=== PATIENT | male | born 1970 | race Hispanic/Latino ===

== ENCOUNTER 2018-02-14 13:33 | Inpatient (IN) | payer SELFPAY ==
[2018-02-14 13:34] VITALS: BMI 28.5
--- NOTE | 2018-02-14 14:45 | ED PDOC ---
HPI: General Adult Time Seen by Provider: 02/14/18 14:43 Chief Complaint (Nursing): Seizure Chief Complaint (Provider): HEAD INJURY/FALL History Per: Patient (47 Y/O MAN STAYS AT HOMELESS SKILLED NURSING HERE WITH COMPLAINT OF FALL TODAY AFTER LOSS OF BALANCE. STATES HE TURNED QUICKLY AND FELT DIZZY. STATES HE HAS HAD SIMILAR EPISODES LAST YEAR AND DESCRIBED THEM 'SEIZURES.' STATES HE WAS AWARE OF HIS SURROUNDINGS WITH NO LOC. NOTES HE WAS NOT ABLE TO GET UP OFF FLOOR. NOTES HIP PAIN WELL/HEAD LACERATION.) Past Medical History Reviewed: Historical Data, Nursing Documentation, Vital Signs Vital Signs: Last Vital Signs Temp 99.1 F 02/14/18 13:36 Pulse 124 H 02/14/18 13:36 Resp 16 02/14/18 13:36 BP 153/101 H 02/14/18 13:36 Pulse Ox 99 02/14/18 13:36 - Medical History PMH: Fractures (left ankle fx twice, r great toe fx, r 5th toe fx), HTN, Seizures Denies: Depression - Family History Family History: States: No Known Family Hx - Home Medications Home Medications: Ambulatory Orders Medication Instructions Recorded No Known Home Med 02/14/18 - Allergies Allergies/Adverse Reactions: Allergies Allergy/AdvReac Type Severity Reaction Status Date / Time No Known Allergies Allergy Verified 02/14/18 13:36 Review of Systems ROS Statement: Except As Marked, All Systems Reviewed And Found Negative Physical Exam - Reviewed Nursing Documentation Reviewed: Yes Vital Signs Reviewed: Yes - Physical Exam Appears: Positive for: Well, Non-toxic, No Acute Distress Head Exam: Positive for: NORMAL INSPECTION, NORMOCEPHALIC. Negative for: ATRAUMATIC (1.0 CM LACERATION LATERAL ON RIGHT SIDE OF FACE BY TEMPORAL REGION) Skin: Positive for: Normal Color, Warm, DRY Eye Exam: Positive for: EOMI, Normal appearance, PERRL ENT: Positive for: Normal ENT Inspection Neck: Positive for: Normal, Painless ROM Cardiovascular/Chest: Positive for: Regular Rate, Rhythm Respiratory: Positive for: CNT, Normal Breath Sounds Gastrointestinal/Abdominal: Positive for: Normal Exam, Soft Back: Positive for: Normal Inspection Extremity: Positive for: Normal ROM Neurologic/Psych: Positive for: Alert, Oriented - Laboratory Results Result Diagrams: 02/14/18 15:30 02/14/18 15:30 - ECG O2 Sat by Pulse Oximetry: 99 - Progress ED Course And Treament: CT FACIAL/ORBIT FINDINGS: NASAL BONES: Unremarkable. ORBITS: Unremarkable. PARANASAL SINUSES/ MASTOIDS: There is severe extensive sinusitis MAXILLA: Unremarkable. MANDIBLE/ TEMPOROMANDIBULAR JOINTS: Unremarkable. SKULL BASE: Unremarkable. TEMPORAL BONES: Middle ears and mastoid grossly unremarkable. OTHER FINDINGS: None. IMPRESSION: No evidence of acute fracture REGLAN 10 MG IV ANTIVERT 25MG X 1 DOSE ATIVAN 0.5 MG IV X 1 DOSE FOR TACHYCARDIA BISOPRYL 5 MG X 1 DOSE UPON RE-EVALUATION, TEMP NOTED 100.6 PATIENT NOTED DROWSY, UNCLEAR SECONDARY TO MEDICATIONS OR UNDERLYING ILLNESS NS 2 LITERS ORDERED VENOUS BLOOD GAS/BC X 2/UA/CXR Disposition - Clinical Impression Clinical Impression: Pneumonia, Rhabdomyolysis, Fall, Cocaine abuse - Patient ED Disposition Is Patient to be Admitted: Yes - Disposition Referrals: FAMILY PROVIDER,NO [Primary Care Provider] - Disposition Time: 20:29 Condition: GUARDED - Pt Status Changed To: Hospital Disposition Of: Inpatient - Admit Certification Admit to Inpatient:: After my assessment, the patient will require hospit alization for at least two midnights. This is because of the severity of symptoms shown, intensity of services needed, and/or the medical risk in this patient being treated as an outpatient. Procedure: Wound Repair - Time Performed Time Performed: 20:03 - Time Out Time Out: Site verified - Consent Obtained Consent obtained: Verbal - Performed by Performed by: Mid-level Provider - Indications Indication(s):: Laceration - Location Location:: Face Shape:: Linear Dimensions Length cm: 1.0CM Depth:: Epidermis - Anesthetic Technique Local/Regional Anesthetic:: Lidocaine 1% w/epi - Debris Debris:: None - Irrigated Irrigated with ml of normal saline: 100ML - Complexity Complexity:: Simple (one layer) - Wound repair method Sutures:: # (2), Size (6-0 ), Type (PROLENE), Technique (INTERRUPTED) - Patient tolerated procedure Patient Tolerated Procedure:: Well
[2018-02-14 15:15] LABS: BARBITURATES, UR NEGATIVE (NEGATIVE); BENZODIAZEPINES, UR NEGATIVE (NEGATIVE); OPIATES, UR NEGATIVE (NEGATIVE); PHENCYCLIDINE, UR NEGATIVE (NEGATIVE)
--- NOTE | 2018-02-14 15:34 | CT ---
Date of service: 02/14/2018 PROCEDURE: CT HEAD WITHOUT CONTRAST. HISTORY: HEAD INJURY COMPARISON: None available. TECHNIQUE: Axial computed tomography images were obtained through the head/brain without intravenous contrast. Radiation dose: Total exam DLP = 2442 mGy-cm. This CT exam was performed using one or more of the following dose reduction techniques: Automated exposure control, adjustment of the mA and/or kV according to patient size, and/or use of iterative reconstruction technique. FINDINGS: HEMORRHAGE: No intracranial hemorrhage. BRAIN: No mass effect or edema. Mild atrophy and mild chronic microvascular changes VENTRICLES: Unremarkable. No hydrocephalus. CALVARIUM: Unremarkable. PARANASAL SINUSES: There is sinusitis with opacification of the ethmoid sinuses and mucosal thickening in the maxillary and sphenoid sinus MASTOID AIR CELLS: Unremarkable as visualized. No inflammatory changes. OTHER FINDINGS: None. IMPRESSION: No acute intracranial findings
--- NOTE | 2018-02-14 15:39 | CT ---
Date of service: 02/14/2018 PROCEDURE: CT MAXILLOFACIAL BONES WITHOUT CONTRAST HISTORY: FACIAL INJURY COMPARISON: None available. TECHNIQUE: Contiguous axial CT images of the maxillofacial bones were obtained. Coronal and sagittal reformats were generated. Radiation dose: Total exam DLP = 2442.68 mGy-cm. This CT exam was performed using one or more of the following dose reduction techniques: Automated exposure control, adjustment of the mA and/or kV according to patient size, and/or use of iterative reconstruction technique. FINDINGS: NASAL BONES: Unremarkable. ORBITS: Unremarkable. PARANASAL SINUSES/ MASTOIDS: There is severe extensive sinusitis MAXILLA: Unremarkable. MANDIBLE/ TEMPOROMANDIBULAR JOINTS: Unremarkable. SKULL BASE: Unremarkable. TEMPORAL BONES: Middle ears and mastoid grossly unremarkable. OTHER FINDINGS: None. IMPRESSION: No evidence of acute fracture
[2018-02-14 15:44] LABS: BASO % 0.5 % (0.0-2.0); HEMOGLOBIN 10.1 g/dL (12.0-18.0); LYMPH % 21.4 % (20.0-40.0); MEAN CELL VOLUME 83.2 fl (80.0-94.0); MEAN CORPUSCULAR HEMOGLOBIN 27.1 pg (27.0-31.0); MEAN CORPUSCULAR HGB CONC 32.6 g/dL (33.0-37.0); MEAN PLATELET VOLUME 7.8 fl (7.2-11.7); MONO # 0.6 K/uL (0.0-0.8); MONO % 13.8 % (0.0-10.0); NEUT % 64.3 % (50.0-75.0); NRBC % 0.1 % (0.0-0.0); RBC 3.74 Mil/uL (4.40-5.90); RED CELL DISTRIBUTION WIDTH 15.7 % (11.5-14.5); WHITE BLOOD COUNT 4.6 K/uL (4.8-10.8)
[2018-02-14 15:51] LABS: ALB/GLOB RATIO 0.7 (1.0-2.1); ALBUMIN 3.6 g/dL (3.5-5.0); ALT/SGPT 37 U/L (21-72); AST/SGOT 104 U/L (17-59); BLOOD UREA NITROGEN 23 mg/dl (9-20); CALCIUM 8.7 mg/dL (8.4-10.2); GFR NON-AFRICAN AMERICAN > 60
--- NOTE | 2018-02-14 17:21 | RAD ---
Date of service: 02/14/2018 PROCEDURE: Right Wrist Radiographs. HISTORY: WRIST INJURY COMPARISON: None. FINDINGS: BONES: Normal. No fracture. JOINTS: Normal. No dislocation. SOFT TISSUES: Normal. OTHER FINDINGS: None. IMPRESSION: No acute findings related to/accounting for the clinical presentation.
--- NOTE | 2018-02-14 17:21 | RAD ---
Date of service: 02/14/2018 PROCEDURE: Pelvis and right hip HISTORY: HIP INJURY COMPARISON: None TECHNIQUE: Standard protocol for this study/examination. FINDINGS: There are no osseous abnormalities to suggest fracture. The pelvic ring is intact. Preserved femoral-acetabular relationship. Negative study for protrusio, subluxation or dislocation. Degenerative changes: Mild and symmetrical. IMPRESSION: No acute findings related to/accounting for the clinical presentation.
[2018-02-14] MEDS ORDERED: Sodium Chloride 0.9% 2,000 ML IV STA (18:53)
[2018-02-14 19:12] LABS: VENOUS BLOOD GAS BASE EXCESS 1.5 mmol/L (0.0-2.0); VENOUS BLOOD GAS PCO2 34 mmHg (40-60); VENOUS BLOOD GAS PO2 41 mm/Hg (30-55); VENOUS BLOOD PH 7.47 (7.32-7.43)
[2018-02-14] MEDS ORDERED: levoFLOXacin 750 mg in D5W 150 ML BAG IVPB STA (20:28)
[2018-02-14] MEDS ORDERED: levoFLOXacin 750 mg in D5W 750 MG/150 ML BAG IVPB ONE (21:50)
--- NOTE | 2018-02-14 22:11 | CP.PCM.HP ---
<Patricia Martin - Last Filed: 02/15/18 00:22> History of Present Illness - History of Present Illness History of Present Illness: 47 yr old homeless M presents to ED with complaint of right face laceration and right hip pain after fall. Reported he turned too quickly and felt dizzy and fell, was not able to get off the floor, suffered cut to right face, denied LOC. Patient asleep, arousable, not answering questions (likely due to drug intoxication). Information obtained from [employer]. Reported similar episodes in the past due to seizure activity. PMD: none PMHx: uncontrolled HTN, seizure activity, multiple fractures (left ankle, right great toe, right 5th toe) SurgHx: torn meniscus left knee and skin graft FMHx: unknown SocHx: cocaine abuse, homeless (stays at senior living) Medications: no home meds Allergies: NKDA ED course: BP 153/100 mmHg, HR 124 bpm, Resp rate 16, SpO2 99% -repeat BP 175/110 mmHg -EKG: sinus tachycardia, no significant ST-T changes -CXR: right upper and lower lobe patchy infiltrates-official report pending -Head CT: no acute intracranial findings -Orbit CT: no evidence of acute fracture -Right Hip and Pelvis Xray: no acute findings to account for clinical presentation -Right Wrist xray: no acute findings -Shoulder xray: pending -CBC w/diff: WBC 4.6, H/H 10.1/31.1, MCV 83.2, plts 164 -CMP: AST 104, BUN 23/Cr 1.1, rest wnl -alk phos 85, magnesium 1.8 -proBNP 7,120 -troponin: 0.0780 -total creatine kinase: 4,328 -Utox: positive for cocaine -influenza A,B negative -ED treatment: right temporal laceration repair (1 interrrupted suture); tylenol 975mg PO once, Bisoprolol 5mg PO once, Levofloxacin 750mg IV once, Ativan 0.5mg IV once, Meclizine 25mg PO once, Regaln 10mg IV once, NS 2L IV bolus once Present on Admission - Present on Admission Any Indicators Present on Admission: No History of DVT/PE: No History of Uncontrolled Diabetes: No Urinary Catheter: No Decubitus Ulcer Present: No History Surgical Site Infection Following: None Review of Systems - Review of Systems Systems not reviewed;Unavailable: Intoxicated Past Patient History - Infectious Disease Hx of Infectious Diseases: None - Tetanus Immunizations Tetanus Immunization: Unknown - Past Social History Smoking Status: Never Smoked - CARDIAC Hx Hypertension: Yes - NEUROLOGICAL Hx Seizures: Yes - HEMATOLOGICAL/ONCOLOGICAL Hx Blood Transfusions: No Hx Blood Transfusion Reaction: No - INTEGUMENTARY Other/Comment: left inner upper arm 4cm x 3cm large brown area surrounded by reddened skin and swelling - MUSCULOSKELETAL/RHEUMATOLOGICAL Hx Fractures: Yes (left ankle fx twice, r great toe fx, r 5th toe fx) - PSYCHIATRIC Hx Depression: No - SURGICAL HISTORY Hx Angioplasty: Yes (1 stent) Hx Orthopedic Surgery: Yes Other/Comment: torn meniscus left knee and skin graft - ANESTHESIA Hx Anesthesia: Yes Hx Anesthesia Reactions: No Hx Malignant Hyperthermia: No Meds Allergies/Adverse Reactions: Allergies Allergy/AdvReac Type Severity Reaction Status Date / Time No Known Allergies Allergy Verified 02/14/18 13:36 Physical Exam - Constitutional Appears: No Acute Distress, Other (drowsy, arousable; poor hygiene-significant malodor) - Head Exam Head Exam: absent: ATRAUMATIC (right temporal laceration repaired- 1 interrupted suture), NORMAL INSPECTION (dry blood over face, nasal discharge, multiple abrasions) - ENT Exam ENT Exam: Mucous Membranes Moist - Neck Exam Neck exam: Positive for: Normal Inspection - Respiratory Exam Respiratory Exam: NORMAL BREATHING PATTERN. absent: Rales, Rhonchi, Wheezes - Cardiovascular Exam Cardiovascular Exam: Tachycardia, +S1, +S2 - GI/Abdominal Exam GI & Abdominal Exam: Normal Bowel Sounds, Soft. absent: Distended, Guarding, Rebound, Tenderness - Extremities Exam Extremities exam: Positive for: pedal edema (bilateral +1), pedal pulses present - Neurological Exam Additional comments: somnolent - Skin Skin Exam: Abrasion (diffuse/multiple abrasion all over upper and lower extremities bilaterally and face), Dry, Warm Results - Vital Signs Recent Vital Signs: Last Vital Signs Temp 100.6 F H 02/14/18 19:42 Pulse 115 H 02/14/18 19:40 Resp 20 02/14/18 19:40 BP 131/108 H 02/14/18 19:40 Pulse Ox 99 02/14/18 20:30 - Labs Result Diagrams: 02/14/18 15:30 02/14/18 15:30 Labs: Laboratory Results - last 24 hr 02/14/18 02/14/18 02/14/18 14:51 15:30 15:30 WBC 4.6 L RBC 3.74 L Hgb 10.1 L Hct 31.1 L MCV 83.2 MCH 27.1 MCHC 32.6 L RDW 15.7 H Plt Count 164 MPV 7.8 Neut % (Auto) 64.3 Lymph % (Auto) 21.4 Millard % (Auto) 13.8 H Eos % (Auto) 0.0 Baso % (Auto) 0.5 Neut # (Auto) 3.0 Lymph # (Auto) 1.0 Millard # (Auto) 0.6 Eos # (Auto) 0.0 Baso # (Auto) 0.0 pO2 VBG pH VBG pCO2 VBG HCO3 VBG Total CO2 VBG O2 Sat (Calc) VBG Base Excess VBG Potassium Glucose Lactate FiO2 Sodium 139 Potassium 4.2 Chloride 106 Carbon Dioxide 25 Anion Gap 12 BUN 23 H Creatinine 1.1 Est GFR ( Amer) > 60 Est GFR (Non-Af Amer) > 60 Random Glucose 104 Calcium 8.7 Magnesium 1.8 Total Bilirubin 0.5 AST 104 H ALT 37 Alkaline Phosphatase 85 Total Creatine Kinase Troponin I 0.0780 NT-Pro-B Natriuret Pep Total Protein 8.8 H Albumin 3.6 Globulin 5.1 H Albumin/Globulin Ratio 0.7 L Venous Blood Potassium Urine Opiates Screen Negative Urine Methadone Screen Negative Ur Barbiturates Screen Negative Ur Phencyclidine Scrn Negative Ur Amphetamines Screen Negative U Benzodiazepines Scrn Negative U Oth Cocaine Metabols Positive H U Cannabinoids Screen Negative Alcohol, Quantitative < 10 Influenza Typ A,B (EIA) 02/14/18 02/14/18 02/14/18 18:50 19:00 19:00 WBC RBC Hgb Hct MCV MCH MCHC RDW Plt Count MPV Neut % (Auto) Lymph % (Auto) Millard % (Auto) Eos % (Auto) Baso % (Auto) Neut # (Auto) Lymph # (Auto) Millard # (Auto) Eos # (Auto) Baso # (Auto) pO2 41 VBG pH 7.47 H VBG pCO2 34 L VBG HCO3 25.6 VBG Total CO2 25.7 VBG O2 Sat (Calc) 80.6 H VBG Base Excess 1.5 VBG Potassium 3.9 Glucose 101 Lactate 0.7 FiO2 21.0 Sodium 138.0 Potassium Chloride 107.0 Carbon Dioxide Anion Gap BUN Creatinine Est GFR ( Amer) Est GFR (Non-Af Amer) Random Glucose Calcium Magnesium Total Bilirubin AST ALT Alkaline Phosphatase Total Creatine Kinase 4328 H Troponin I NT-Pro-B Natriuret Pep Total Protein Albumin Globulin Albumin/Globulin Ratio Venous Blood Potassium 3.9 Urine Opiates Screen Urine Methadone Screen Ur Barbiturates Screen Ur Phencyclidine Scrn Ur Amphetamines Screen U Benzodiazepines Scrn U Oth Cocaine Metabols U Cannabinoids Screen Alcohol, Quantitative Influenza Typ A,B (EIA) Negative for flu a/b 02/14/18 21:45 WBC RBC Hgb Hct MCV MCH MCHC RDW Plt Count MPV Neut % (Auto) Lymph % (Auto) Millard % (Auto) Eos % (Auto) Baso % (Auto) Neut # (Auto) Lymph # (Auto) Millard # (Auto) Eos # (Auto) Baso # (Auto) pO2 VBG pH VBG pCO2 VBG HCO3 VBG Total CO2 VBG O2 Sat (Calc) VBG Base Excess VBG Potassium Glucose Lactate FiO2 Sodium Potassium Chloride Carbon Dioxide Anion Gap BUN Creatinine Est GFR ( Amer) Est GFR (Non-Af Amer) Random Glucose Calcium Magnesium Total Bilirubin AST ALT Alkaline Phosphatase Total Creatine Kinase Troponin I NT-Pro-B Natriuret Pep 7120 H Total Protein Albumin Globulin Albumin/Globulin Ratio Venous Blood Potassium Urine Opiates Screen Urine Methadone Screen Ur Barbiturates Screen Ur Phencyclidine Scrn Ur Amphetamines Screen U Benzodiazepines Scrn U Oth Cocaine Metabols U Cannabinoids Screen Alcohol, Quantitative Influenza Typ A,B (EIA) Assessment & Plan - Assessment and Plan (Free Text) Assessment: 47 yr old M admitted for pneumonia and rhabdomyolysis with PMHx uncontrolled hypertension, seizures and cocaine abuse. 1. Pneumonia -febrile, cough, CXR patchy right upper and lower lobe infiltrates: official report pending -admit to telemetry -Ceftriaxone 1gm IV QD, Azithromycin 500mg IV QD -Pulmonology consult appreciated: Dr. Navarro -f/u blood and urine culture 2. Rhabdomyolysis -acute, likely secondary to fall -total creatinine kinase: 4,328 -IV NS at 200mls/hr -f/u BMP (monitor kidney funtion) -f/u serial troponins -fall precautions in place 3. Hypertension -chronic, uncontrolled -Vasotec 1.25mg IV Q6 -monitor BP -switch to PO medication when tolerated -heart healthy diet 4. Seizures hx -chronic (self reported) -Ativan 2mg IV PRN for seizure activity -fall precautions 5. DVT prophylaxis -Lovenox 40mg SC QD -SCD's continuously - Date & Time Date: 02/14/18 Time: 22:10 <Ismael Garrett - Last Filed: 02/15/18 01:34> Results - Vital Signs Recent Vital Signs: Last Vital Signs Temp 99.3 F 02/14/18 22:31 Pulse 105 H 02/14/18 22:31 Resp 18 02/14/18 22:31 BP 102/76 02/14/18 22:31 Pulse Ox 91 L 02/14/18 22:31 - Labs Result Diagrams: 02/14/18 15:30 02/14/18 15:30 Labs: Laboratory Results - last 24 hr 02/14/18 02/14/18 02/14/18 14:51 15:30 15:30 WBC 4.6 L RBC 3.74 L Hgb 10.1 L Hct 31.1 L MCV 83.2 MCH 27.1 MCHC 32.6 L RDW 15.7 H Plt Count 164 MPV 7.8 Neut % (Auto) 64.3 Lymph % (Auto) 21.4 Millard % (Auto) 13.8 H Eos % (Auto) 0.0 Baso % (Auto) 0.5 Neut # (Auto) 3.0 Lymph # (Auto) 1.0 Millard # (Auto) 0.6 Eos # (Auto) 0.0 Baso # (Auto) 0.0 pO2 VBG pH VBG pCO2 VBG HCO3 VBG Total CO2 VBG O2 Sat (Calc) VBG Base Excess VBG Potassium Glucose Lactate FiO2 Sodium 139 Potassium 4.2 Chloride 106 Carbon Dioxide 25 Anion Gap 12 BUN 23 H Creatinine 1.1 Est GFR ( Amer) > 60 Est GFR (Non-Af Amer) > 60 Random Glucose 104 Calcium 8.7 Magnesium 1.8 Total Bilirubin 0.5 AST 104 H ALT 37 Alkaline Phosphatase 85 Total Creatine Kinase Troponin I 0.0780 NT-Pro-B Natriuret Pep Total Protein 8.8 H Albumin 3.6 Globulin 5.1 H Albumin/Globulin Ratio 0.7 L Venous Blood Potassium Urine Opiates Screen Negative Urine Methadone Screen Negative Ur Barbiturates Screen Negative Ur Phencyclidine Scrn Negative Ur Amphetamines Screen Negative U Benzodiazepines Scrn Negative U Oth Cocaine Metabols Positive H U Cannabinoids Screen Negative Alcohol, Quantitative < 10 Influenza Typ A,B (EIA) 02/14/18 02/14/18 02/14/18 18:50 19:00 19:00 WBC RBC Hgb Hct MCV MCH MCHC RDW Plt Count MPV Neut % (Auto) Lymph % (Auto) Millard % (Auto) Eos % (Auto) Baso % (Auto) Neut # (Auto) Lymph # (Auto) Millard # (Auto) Eos # (Auto) Baso # (Auto) pO2 41 VBG pH 7.47 H VBG pCO2 34 L VBG HCO3 25.6 VBG Total CO2 25.7 VBG O2 Sat (Calc) 80.6 H VBG Base Excess 1.5 VBG Potassium 3.9 Glucose 101 Lactate 0.7 FiO2 21.0 Sodium 138.0 Potassium Chloride 107.0 Carbon Dioxide Anion Gap BUN Creatinine Est GFR ( Amer) Est GFR (Non-Af Amer) Random Glucose Calcium Magnesium Total Bilirubin AST ALT Alkaline Phosphatase Total Creatine Kinase 4328 H Troponin I NT-Pro-B Natriuret Pep Total Protein Albumin Globulin Albumin/Globulin Ratio Venous Blood Potassium 3.9 Urine Opiates Screen Urine Methadone Screen Ur Barbiturates Screen Ur Phencyclidine Scrn Ur Amphetamines Screen U Benzodiazepines Scrn U Oth Cocaine Metabols U Cannabinoids Screen Alcohol, Quantitative Influenza Typ A,B (EIA) Negative for flu a/b 02/14/18 21:45 WBC RBC Hgb Hct MCV MCH MCHC RDW Plt Count MPV Neut % (Auto) Lymph % (Auto) Millard % (Auto) Eos % (Auto) Baso % (Auto) Neut # (Auto) Lymph # (Auto) Millard # (Auto) Eos # (Auto) Baso # (Auto) pO2 VBG pH VBG pCO2 VBG HCO3 VBG Total CO2 VBG O2 Sat (Calc) VBG Base Excess VBG Potassium Glucose Lactate FiO2 Sodium Potassium Chloride Carbon Dioxide Anion Gap BUN Creatinine Est GFR ( Amer) Est GFR (Non-Af Amer) Random Glucose Calcium Magnesium Total Bilirubin AST ALT Alkaline Phosphatase Total Creatine Kinase Troponin I NT-Pro-B Natriuret Pep 7120 H Total Protein Albumin Globulin Albumin/Globulin Ratio Venous Blood Potassium Urine Opiates Screen Urine Methadone Screen Ur Barbiturates Screen Ur Phencyclidine Scrn Ur Amphetamines Screen U Benzodiazepines Scrn U Oth Cocaine Metabols U Cannabinoids Screen Alcohol, Quantitative Influenza Typ A,B (EIA) Attending/Attestation - Attestation I have personally seen and examined this patient.: Yes I have fully participated in the care of the patient.: Yes I have reviewed all pertinent clinical information: Yes Notes (Text): I saw, examined and discussed this patient with Dr Martin. I agree with the assessment and plan outlined above. This is a 47 years old homeless male with hx of HTN, seizure and Drug abuse. His hx is unreliable. He stated that he fell hitting his right side face, no LOC but it was as the feeling as when he suffered with a seizure episode. In the ED he appears to be intoxicated. A&P #. Fall with multitrauma. - CT of head and orbits were -ve for fractures. - The patient had the right facial wound sutured - Continue to monitor patient #. Cocaine intoxication - Cardiac monitoring - Ativan PRN for Seizures and Agitation - Treat hyperthermia and HTN #. Rhabdomyolysis secondary to the Cocaine and crush injury due to the fall - IV Fluids - Follow CPK #. HTN - Vasotec IV - Follow blood pressures #. Pulmonary Infiltrate r/o pneumonia - Consult Pulmonology Dr Nvaarro - Azithromycin - Ceftriaxone #. Elevated Pro BNP etiology unclear - lasix while receiving IV Fluids for The Rhabdomyolysis #. Anemia - Iron panel - B12 - Folate 02/15/18 01:28
[2018-02-15] MEDS: Sodium Chloride 0.9% 1,000 ML IV SCH ×4 (02:05→12:16)
[2018-02-15] MEDS: EnalaprilAT 1.25 mg/ml Inj IV SCH ×5 (05:44→21:53)
[2018-02-15 08:23] LABS: IRON < 10 ug/dL (49-181)
[2018-02-15 08:35] LABS: TROPONIN I 0.336 ng/mL (0.00-0.120)
[2018-02-15 08:39] LABS: TOTAL IRON BINDING CAPACITY 210 ug/dL (250-450)
[2018-02-15 08:41] LABS: % IRON SATURATION 4.8 % (20-55)
[2018-02-15] MEDS: Azithromycin 500 MG in Sodium Chloride 0.9% 250 ML IVPB SCH (10:40)
--- NOTE | 2018-02-15 10:42 | CP.PCM.CON ---
History of Present Illness - History of Present Illness History of Present Illness: This 47-year-old man arrived in the emergency room after a fall during which she suffered blunt injury to face and arms. Urinalysis shows evidence of cocaine use. The patient arrived in the emerg ency room unable to give clear history and required insertion of a Garsia catheter. During my examination patient was more awake and was able to answer simple questions but promptly drifted back to sleep. The patient appeared aware of his surroundings. Denied any blunt injury to his chest or chest pain. He denied prior history of hypertension or diabetes. Physical examination shows a well built well-nourished young man. Appears drowsy. Breathes comfortably at 14-16 breaths per minute. Had a heart rate off 80 bpm regular. With a blood pressure of 130/74 mmHg. His jugular venous pressure was not elevated and there was no edema over his lower extremities. Her pedal pulses were well felt. There were no carotid bruits. Superficial lacerations were evident on his face and arms. Extremities were warm and nailbeds were pink. The apex was vaguely felt in the left fifth space. The first and second heart sounds were normal. There was no murmur or gallop. There were no rales. His abdomen was soft liver and spleen are not palpable. His electrocardiogram at admission showed sinus rhythm at 124 bpm with a normal EKG pattern. An electrocardiogram done this morning shows sinus rhythm with much flattening of T waves and a prolonged QT interval. The QTC was 576 ms. (serum magnesium was low and it was replaced intravenously) the rest of the labs were noted. The patient did display a significant elevation of total CK and troponin levels both represent rhabdomyolysis. There is no evidence of an acute myocardial infarction. Impression: Blunt trauma with a rhabdomyolysis. Cocaine abuse. I have discussed his case with Dr. Sosa at length. Past Patient History - Infectious Disease Hx of Infectious Diseases: None - Tetanus Immunizations Tetanus Immunization: Unknown - Past Social History Smoking Status: Never Smoked - CARDIAC Hx Cardiac Disorders: Yes Hx Hypertension: Yes - NEUROLOGICAL Hx Neurological Disorder: Yes Hx Seizures: Yes - HEMATOLOGICAL/ONCOLOGICAL Hx Blood Transfusions: No Hx Blood Transfusion Reaction: No - INTEGUMENTARY Hx Dermatological Problems: Yes Hx Cellulitis: Yes - MUSCULOSKELETAL/RHEUMATOLOGICAL Hx Falls: No Hx Fractures: Yes (left ankle fx twice, r great toe fx, r 5th toe fx) - PSYCHIATRIC Hx Depression: No - SURGICAL HISTORY Hx Surgeries: Yes Hx Cardiac Catheterization: Yes (with 1 stent placement) Hx Orthopedic Surgery: Yes Other/Comment: torn meniscus left knee and skin graft - ANESTHESIA Hx Anesthesia: Yes Hx Anesthesia Reactions: No Hx Malignant Hyperthermia: No Meds Allergies/Adverse Reactions: Allergies Allergy/AdvReac Type Severity Reaction Status Date / Time No Known Allergies Allergy Verified 02/14/18 13:36 - Medications Medications: Current Medications Acetaminophen (Tylenol 325mg Tab) 650 mg PO Q4 PRN PRN Reason: Fever >100.4 F Last Admin: 02/15/18 05:58 Dose: 650 mg Aspirin (Aspirin) 325 mg PO DAILY [facility] Clopidogrel Bisulfate (Plavix) 75 mg PO DAILY [facility] Enalaprilat (Vasotec Iv) 1.25 mg IV Q6 [facility] Last Admin: 02/15/18 05:44 Dose: Not Given Enoxaparin Sodium (Lovenox) 40 mg SC DAILY [facility]; Protocol Sodium Chloride (Sodium Chloride 0.9%) 1,000 mls @ 200 mls/hr IV .Q5H [facility] Stop: 02/15/18 14:14 Last Admin: 02/15/18 08:08 Dose: 200 mls/hr Ceftriaxone Sodium 1 gm/ (Sodium Chloride) 100 mls @ 100 mls/hr IVPB DAILY [facility]; Protocol Azithromycin 500 mg/ Sodium (Chloride) 250 mls @ 250 mls/hr IVPB DAILY [facility]; Protocol Lorazepam (Ativan) 2 mg IVP STAT PRN PRN Reason: Seizure activity Lorazepam (Ativan) 1 mg IVP Q6H PRN PRN Reason: Agitation Losartan Potassium (Cozaar) 25 mg PO DAILY [facility] Results - Vital Signs Recent Vital Signs: Last Vital Signs Temp 99.7 F H 02/15/18 08:19 Pulse 100 H 02/15/18 08:19 Resp 16 02/15/18 08:19 BP 115/75 02/15/18 08:19 Pulse Ox 97 02/15/18 08:19 - Labs Result Diagrams: 02/14/18 15:30 02/14/18 15:30 Labs: Laboratory Results - last 24 hr 02/14/18 02/14/18 02/14/18 14:51 15:30 15:30 WBC 4.6 L RBC 3.74 L Hgb 10.1 L Hct 31.1 L MCV 83.2 MCH 27.1 MCHC 32.6 L RDW 15.7 H Plt Count 164 MPV 7.8 Neut % (Auto) 64.3 Lymph % (Auto) 21.4 [place] % (Auto) 13.8 H Eos % (Auto) 0.0 Baso % (Auto) 0.5 Neut # (Auto) 3.0 Lymph # (Auto) 1.0 [place] # (Auto) 0.6 Eos # (Auto) 0.0 Baso # (Auto) 0.0 pO2 VBG pH VBG pCO2 VBG HCO3 VBG Total CO2 VBG O2 Sat (Calc) VBG Base Excess VBG Potassium Glucose Lactate FiO2 Sodium 139 Potassium 4.2 Chloride 106 Carbon Dioxide 25 Anion Gap 12 BUN 23 H Creatinine 1.1 Est GFR ( Amer) > 60 Est GFR (Non-Af Amer) > 60 POC Glucose (mg/dL) Random Glucose 104 Calcium 8.7 Magnesium 1.8 Iron TIBC % Saturation Total Bilirubin 0.5 AST 104 H ALT 37 Alkaline Phosphatase 85 Total Creatine Kinase Troponin I 0.0780 NT-Pro-B Natriuret Pep Total Protein 8.8 H Albumin 3.6 Globulin 5.1 H Albumin/Globulin Ratio 0.7 L Vitamin B12 Venous Blood Potassium Urine Opiates Screen Negative Urine Methadone Screen Negative Ur Barbiturates Screen Negative Ur Phencyclidine Scrn Negative Ur Amphetamines Screen Negative U Benzodiazepines Scrn Negative U Oth Cocaine Metabols Positive H U Cannabinoids Screen Negative Alcohol, Quantitative < 10 Influenza Typ A,B (EIA) 02/14/18 02/14/18 02/14/18 18:50 19:00 19:00 WBC RBC Hgb Hct MCV MCH MCHC RDW Plt Count MPV Neut % (Auto) Lymph % (Auto) [place] % (Auto) Eos % (Auto) Baso % (Auto) Neut # (Auto) Lymph # (Auto) [place] # (Auto) Eos # (Auto) Baso # (Auto) pO2 41 VBG pH 7.47 H VBG pCO2 34 L VBG HCO3 25.6 VBG Total CO2 25.7 VBG O2 Sat (Calc) 80.6 H VBG Base Excess 1.5 VBG Potassium 3.9 Glucose 101 Lactate 0.7 FiO2 21.0 Sodium 138.0 Potassium Chloride 107.0 Carbon Dioxide Anion Gap BUN Creatinine Est GFR ( Amer) Est GFR (Non-Af Amer) POC Glucose (mg/dL) Random Glucose Calcium Magnesium Iron TIBC % Saturation Total Bilirubin AST ALT Alkaline Phosphatase Total Creatine Kinase 4328 H Troponin I NT-Pro-B Natriuret Pep Total Protein Albumin Globulin Albumin/Globulin Ratio Vitamin B12 Venous Blood Potassium 3.9 Urine Opiates Screen Urine Methadone Screen Ur Barbiturates Screen Ur Phencyclidine Scrn Ur Amphetamines Screen U Benzodiazepines Scrn U Oth Cocaine Metabols U Cannabinoids Screen Alcohol, Quantitative Influenza Typ A,B (EIA) Negative for flu a/b 02/14/18 02/15/18 02/15/18 21:45 01:50 06:19 WBC RBC Hgb Hct MCV MCH MCHC RDW Plt Count MPV Neut % (Auto) Lymph % (Auto) [place] % (Auto) Eos % (Auto) Baso % (Auto) Neut # (Auto) Lymph # (Auto) [place] # (Auto) Eos # (Auto) Baso # (Auto) pO2 VBG pH VBG pCO2 VBG HCO3 VBG Total CO2 VBG O2 Sat (Calc) VBG Base Excess VBG Potassium Glucose Lactate FiO2 Sodium Potassium Chloride Carbon Dioxide Anion Gap BUN Creatinine Est GFR ( Amer) Est GFR (Non-Af Amer) POC Glucose (mg/dL) 113 H Random Glucose Calcium Magnesium Iron TIBC % Saturation Total Bilirubin AST ALT Alkaline Phosphatase Total Creatine Kinase 4356 H Troponin I 0.3360 H* NT-Pro-B Natriuret Pep 7120 H Total Protein Albumin Globulin Albumin/Globulin Ratio Vitamin B12 256 Venous Blood Potassium Urine Opiates Screen Urine Methadone Screen Ur Barbiturates Screen Ur Phencyclidine Scrn Ur Amphetamines Screen U Benzodiazepines Scrn U Oth Cocaine Metabols U Cannabinoids Screen Alcohol, Quantitative Influenza Typ A,B (EIA) 02/15/18 06:19 WBC RBC Hgb Hct MCV MCH MCHC RDW Plt Count MPV Neut % (Auto) Lymph % (Auto) [place] % (Auto) Eos % (Auto) Baso % (Auto) Neut # (Auto) Lymph # (Auto) [place] # (Auto) Eos # (Auto) Baso # (Auto) pO2 VBG pH VBG pCO2 VBG HCO3 VBG Total CO2 VBG O2 Sat (Calc) VBG Base Excess VBG Potassium Glucose Lactate FiO2 Sodium Potassium Chloride Carbon Dioxide Anion Gap BUN Creatinine Est GFR ( Amer) Est GFR (Non-Af Amer) POC Glucose (mg/dL) Random Glucose Calcium Magnesium Iron < 10 L TIBC 210 L % Saturation 4.8 L Total Bilirubin AST ALT Alkaline Phosphatase Total Creatine Kinase Troponin I NT-Pro-B Natriuret Pep Total Protein Albumin Globulin Albumin/Globulin Ratio Vitamin B12 Venous Blood Potassium Urine Opiates Screen Urine Methadone Screen Ur Barbiturates Screen Ur Phencyclidine Scrn Ur Amphetamines Screen U Benzodiazepines Scrn U Oth Cocaine Metabols U Cannabinoids Screen Alcohol, Quantitative Influenza Typ A,B (EIA)
[2018-02-15] MEDS: Enoxaparin 40 mg Syringe SC SCH (10:43)
--- NOTE | 2018-02-15 10:52 | CP.PCM.PN ---
Subjective - Date & Time of Evaluation Date of Evaluation: 02/15/18 Time of Evaluation: 09:00 - Subjective Subjective: Pt seen and examined labs and imaging reviewed Pt is drowsy but arousable and follows simple commands denies CP Trop noted to be sl elevated at 0.3febrile Objective - Vital Signs/Intake and Output Vital Signs (last 24 hours): Temp Pulse Resp BP Pulse Ox 99.7 F H 100 H 16 115/75 97 02/15/18 08:19 02/15/18 08:19 02/15/18 08:19 02/15/18 10:41 02/15/18 08:19 - Medications Medications: Current Medications Acetaminophen (Tylenol 325mg Tab) 650 mg PO Q4 PRN PRN Reason: Fever >100.4 F Last Admin: 02/15/18 05:58 Dose: 650 mg Aspirin (Aspirin) 325 mg PO DAILY [facility] Clopidogrel Bisulfate (Plavix) [address] [facility] Enalaprilat (Vasotec Iv) 1.25 mg IV Q6 [facility] Last Admin: 02/15/18 10:41 Dose: 1.25 mg Enoxaparin Sodium (Lovenox) 40 mg SC DAILY [facility]; Protocol Last Admin: 02/15/18 10:43 Dose: 40 mg Sodium Chloride (Sodium Chloride 0.9%) 1,000 mls @ 200 mls/hr IV .Q5H [facility] Stop: 02/15/18 14:14 Last Admin: 02/15/18 08:08 Dose: 200 mls/hr Ceftriaxone Sodium 1 gm/ (Sodium Chloride) 100 mls @ 100 mls/hr IVPB DAILY [facility]; Protocol Last Admin: 02/15/18 10:41 Dose: 100 mls/hr Azithromycin 500 mg/ Sodium (Chloride) 250 mls @ 250 mls/hr IVPB DAILY [facility]; Protocol Last Admin: 02/15/18 10:40 Dose: 250 mls/hr Lorazepam (Ativan) 2 mg IVP STAT PRN PRN Reason: Seizure activity Lorazepam (Ativan) 1 mg IVP Q6H PRN PRN Reason: Agitation Losartan Potassium (Cozaar) 25 mg PO DAILY [facility] - Labs Labs: 02/14/18 15:30 02/14/18 15:30 - Constitutional Appears: Unkempt, Older Than Stated Age, Other (drwosy) - Head Exam Additional comments: superficial laceration , abrasion and bruising on face - Eye Exam Eye Exam: PERRL - ENT Exam ENT Exam: Mucous Membranes Dry, Normal External Ear Exam - Neck Exam Neck Exam: Full ROM. absent: Meningismus - Respiratory Exam Respiratory Exam: Rales, Rhonchi, NORMAL BREATHING PATTERN. absent: Wheezes, Respiratory Distress - Cardiovascular Exam Cardiovascular Exam: Tachycardia, REGULAR RHYTHM, +S1, +S2 - GI/Abdominal Exam GI & Abdominal Exam: Soft, Normal Bowel Sounds. absent: Tenderness - Extremities Exam Extremities Exam: Normal Capillary Refill. absent: Calf Tenderness - Neurological Exam Additional comments: drowsy moves extremities follows simple commands - Skin Skin Exam: Dry, Normal Color, Warm Assessment and Plan (1) Elevated troponin Status: Acute (2) Cocaine abuse Status: Acute (3) Pneumonia Status: Acute (4) Rhabdomyolysis Status: Acute (5) Fall Status: Acute - Assessment and Plan (Free Text) Assessment: 47 y/o gent , with hx Cocaine Use, was brought in after a fall - he described as losing his balance. Drug Screen + Cocaine Imaging did not show any fracture. CT of head : no bleed. Has superficial laceration and abrasions. (1) Elevated troponin prob related ro Rhabomyolysis and Cocaine abuse unlikely OR as per Cardio Status: Acute Found to have + Troponin at 0.3 Started on ASA, Plavix and LOsartan no statin due to Rhabdo, no BB due to Cocaine + Cardio consulted- Dr Skyler stoner, case discussed ECHO (2) Cocaine abuse Status: Acute + Cocaine in Urine drug screen (3) Pneumonia prob bacterial : Acute CXR shows Interstitial infiltrates/Alveolar infiltrates may also be due to Cocaine inhal however pt is febrile rpt CXR PA and lateral sinxce pt is febrile cont IV Ceftriaxone and Azithro Legionella, Mycop;lasma Sputum c/s Blood c/s (4) Rhabdomyolysis Status: Acute CPK elevated likely due to fall and from Cocaine IVF hydration (5) Fall Status: Acute Xrays negative for fracture CT of head : neg bleed 6. Bacteremia Gram negative rods - got a call that blood Gram stain + for Gram neg rods - pt is on IV Ceftriaxone - will increase dose to q 12 -await c/s ID -rpt Blood c/s, Urinalsysis, Urine c/s 7. Iron Def Anemia, chronic start Ferrous 8. B12 Def - start Cyanocobalamine DVT proph - lovenox
--- NOTE | 2018-02-15 10:53 | RAD ---
Date of service: 02/14/2018 PROCEDURE: Radiographs of the Right Shoulder HISTORY: SHOULDER PAIN COMPARISON: No prior. FINDINGS: BONES: Three views of the right shoulder were performed for right shoulder pain. No fracture is seen. Small amount of calcific bursitis is identified. Mild AC joint DJD is noted without abnormal widening. There are degenerative changes also seen in the right humeral head. Right scapula is unremarkable as well as the right ribs. JOINTS: See above. SOFT TISSUES: See above. OTHER FINDINGS: None. IMPRESSION: No evidence of fracture dislocation. Calcific bursitis. DJD right shoulder.
--- NOTE | 2018-02-15 10:53 | CARD ---
APPROVED REPORT Date of service: 02/14/2018 EKG Measurement Heart [id number] <Conclusion> Sinus tachycardia Otherwise normal ECG
--- NOTE | 2018-02-15 11:02 | RAD ---
Date of service: 02/14/2018 HISTORY: ROUTINE COMPARISON: No prior. FINDINGS: LUNGS: Nonspecific patchy interstitial changes are associated with low lung volumes. Underlying small patchy infiltrates cannot be excluded. PLEURA: No significant pleural effusion identified, no pneumothorax apparent. CARDIOVASCULAR: Normal. OSSEOUS STRUCTURES: No significant abnormalities. VISUALIZED UPPER ABDOMEN: Normal. OTHER FINDINGS: None. IMPRESSION: Limited study with low lung volumes. Nonspecific interstitial change and/or patchy infiltrates. Follow-up chest radiograph is suggested. As there is no preliminary reading provided by the emergency room department, this case will be placed in the PA review folder.
[2018-02-15] MEDS ORDERED: Magnesium Sulfate 2 gm/50 ml 2 GM/50 ML BAG IV ONE (11:15)
--- NOTE | 2018-02-15 11:30 | RAD ---
Date of service: 02/15/2018 HISTORY: Follow up on pulmonary infiltrate COMPARISON: Yesterday FINDINGS: LUNGS: Stable low lung volumes are noted. There is also stable areas of interstitial and/or patchy alveolar density in both lung sauceda. No definite new infiltrate is seen. PLEURA: No significant pleural effusion identified, no pneumothorax apparent. CARDIOVASCULAR: Unchanged. OSSEOUS STRUCTURES: No significant abnormalities. VISUALIZED UPPER ABDOMEN: Normal. OTHER FINDINGS: None. IMPRESSION: Stable appearance of the lungs with nonspecific mild patchy interstitial change or alveolar densities. No new infiltrate.
[2018-02-15] MEDS ORDERED: Sodium Chloride 3% for Inhalation 4 ML VIAL.NEB IH PRN (14:14)
--- NOTE | 2018-02-15 14:49 | CP.PCM.CON ---
History of Present Illness - History of Present Illness History of Present Illness: Pulmonary consult for a 47 y/o M, Homeless, PMHx: Cocaine abuse,uncontrolled HTN, Seizure, multiple Fx L ankle, R great toe, R fith toe. Pt was brought on 02/14/18 to ER [facility], [place] due to fall/trauma after loss of balance/dizziness, Pt fell forward sustaining R temporal laceration that was repair in the ER, L upper arm abrasion, R hip pain. Pt denied LOC, Seizure. Worsening symptoms: Found with Lung infiltrates in CXR, now associated to high fever, TMAx 103.0F, sinus tachycardia, Utox: + Cocaine, Serology report: + HIV. Aggravated factor: No known home medications. Pt denied: CP, LOC, numbness, SOB, cough, n/v/d, abdominal pain, urinary symptoms. Review of Systems - Constitutional Constitutional: Lethargy (at times) - EENT Eyes: Other (negative) Ears: Other (negative) Nose/Mouth/Throat: Other (negative) - Cardiovascular Cardiovascular: Rapid Heart Rate - Respiratory Respiratory: Other (negative) - Gastrointestinal Gastrointestinal: Other (negative) - Genitourinary Genitourinary: Other (negative) - Musculoskeletal Musculoskeletal: Other (R face pain.) - Integumentary Integumentary: Lesions (face), Other (abrasion L upeer arm) - Neurological Neurological: Frequent Falls - Psychiatric Psychiatric: Other (negative) - Endocrine Endocrine: Other (negative) - Hematologic/Lymphatic Hematologic: Other (anemia) Past Patient History - Infectious Disease Hx of Infectious Diseases: None - Tetanus Immunizations Tetanus Immunization: Unknown - Past Medical History & Family History Pertinent Family History: Unknown - Past Social History Smoking Status: Never Smoked Alcohol: None Drugs: Cocaine (abuse) - CARDIAC Hx Cardiac Disorders: Yes Hx Hypertension: Yes - PULMONARY Hx Respiratory Disorders: No - NEUROLOGICAL Hx Neurological Disorder: Yes Hx Seizures: Yes - HEENT Hx HEENT Problems: No - RENAL Hx Chronic Kidney Disease: No - ENDOCRINE/METABOLIC Hx Endocrine Disorders: No - HEMATOLOGICAL/ONCOLOGICAL Hx Blood Disorders: No Hx Blood Transfusions: No Hx Blood Transfusion Reaction: No - INTEGUMENTARY Hx Dermatological Problems: Yes Hx Cellulitis: Yes - MUSCULOSKELETAL/RHEUMATOLOGICAL Hx Falls: Yes Hx Fractures: Yes (left ankle fx twice, r great toe fx, r 5th toe fx) - GASTROINTESTINAL Hx Gastrointestinal Disorders: No - PSYCHIATRIC Hx Depression: No - SURGICAL HISTORY Hx Surgeries: Yes Hx Cardiac Catheterization: Yes (with 1 stent placement) Hx Orthopedic Surgery: Yes Other/Comment: torn meniscus left knee and skin graft - ANESTHESIA Hx Anesthesia: Yes Hx Anesthesia Reactions: No Hx Malignant Hyperthermia: No Meds Allergies/Adverse Reactions: Allergies Allergy/AdvReac Type Severity Reaction Status Date / Time No Known Allergies Allergy Verified 02/14/18 13:36 - Medications Medications: Current Medications Acetaminophen (Tylenol 325mg Tab) 650 mg PO Q4 PRN PRN Reason: Fever >100.4 F Last Admin: 02/15/18 12:13 Dose: 650 mg Aspirin (Aspirin) 325 mg PO DAILY [facility] Last Admin: 02/15/18 12:14 Dose: 325 mg Clopidogrel Bisulfate (Plavix) 75 mg PO DAILY [facility] Last Admin: 02/15/18 12:13 Dose: 75 mg Cyanocobalamin (Vitamin B12 1000 Mcg/Ml Inj) 1,000 mcg IM DAILY [facility] Stop: 02/17/18 09:01 Last Admin: 02/15/18 12:15 Dose: 1,000 mcg Enalaprilat (Vasotec Iv) 1.25 mg IV Q6 [facility] Last Admin: 02/15/18 10:41 Dose: 1.25 mg Enoxaparin Sodium (Lovenox) 40 mg SC DAILY [facility]; Protocol Last Admin: 02/15/18 10:43 Dose: 40 mg Ferrous Sulfate (Feosol) 325 mg PO DAILY [facility] Last Admin: 02/15/18 12:13 Dose: 325 mg Azithromycin 500 mg/ Sodium (Chloride) 250 mls @ 250 mls/hr IVPB DAILY [facility]; Protocol Last Admin: 02/15/18 10:40 Dose: 250 mls/hr Ceftriaxone Sodium 1 gm/ (Sodium Chloride) 100 mls @ 100 mls/hr IVPB Q12 [facility]; Protocol Lorazepam (Ativan) 2 mg IVP STAT PRN PRN Reason: Seizure activity Lorazepam (Ativan) 1 mg IVP Q6H PRN PRN Reason: Agitation Losartan Potassium (Cozaar) 100 mg PO DAILY [facility] Physical Exam - Constitutional Appears: No Acute Distress - Head Exam Additional comments: Superficial laceration repair, abrasion and bruising on face. - Eye Exam Eye Exam: PERRL - ENT Exam ENT Exam: Mucous Membranes Moist - Neck Exam Neck exam: Positive for: Normal Inspection - Respiratory Exam Respiratory Exam: Rhonchi (scattered) Additional comments: Crackles at bases - Cardiovascular Exam Cardiovascular Exam: Irregular Rhythm - GI/Abdominal Exam GI & Abdominal Exam: Normal Bowel Sounds, Soft - Extremities Exam Additional comments: Abrasion L upper arm - Neurological Exam Neurological exam: Alert, Oriented x3 Additional comments: Follows commands, moves all extremities - Skin Skin Exam: Abrasion, Warm Results - Vital Signs Recent Vital Signs: Last Vital Signs Temp 100.3 F H 02/15/18 13:13 Pulse 112 H 02/15/18 12:40 Resp 18 02/15/18 12:40 BP 142/93 H 02/15/18 12:40 Pulse Ox 96 02/15/18 12:40 reviewed Mallika - Labs Result Diagrams: 02/16/18 06:12 02/16/18 06:12 Labs: Laboratory Results - last 24 hr 02/14/18 02/14/18 02/14/18 14:51 15:30 15:30 WBC 4.6 L RBC 3.74 L Hgb 10.1 L Hct 31.1 L MCV 83.2 MCH 27.1 MCHC 32.6 L RDW 15.7 H Plt Count 164 MPV 7.8 Neut % (Auto) 64.3 Lymph % (Auto) 21.4 Otero % (Auto) 13.8 H Eos % (Auto) 0.0 Baso % (Auto) 0.5 Neut # (Auto) 3.0 Lymph # (Auto) 1.0 Otero # (Auto) 0.6 Eos # (Auto) 0.0 Baso # (Auto) 0.0 pO2 VBG pH VBG pCO2 VBG HCO3 VBG Total CO2 VBG O2 Sat (Calc) VBG Base Excess VBG Potassium Glucose Lactate FiO2 Sodium 139 Potassium 4.2 Chloride 106 Carbon Dioxide 25 Anion Gap 12 BUN 23 H Creatinine 1.1 Est GFR ( Amer) > 60 Est GFR (Non-Af Amer) > 60 POC Glucose (mg/dL) Random Glucose 104 Calcium 8.7 Magnesium 1.8 Iron TIBC % Saturation Total Bilirubin 0.5 AST 104 H ALT 37 Alkaline Phosphatase 85 Total Creatine Kinase Troponin I 0.0780 NT-Pro-B Natriuret Pep Total Protein 8.8 H Albumin 3.6 Globulin 5.1 H Albumin/Globulin Ratio 0.7 L Vitamin B12 Venous Blood Potassium Urine Opiates Screen Negative Urine Methadone Screen Negative Ur Barbiturates Screen Negative Ur Phencyclidine Scrn Negative Ur Amphetamines Screen Negative U Benzodiazepines Scrn Negative U Oth Cocaine Metabols Positive H U Cannabinoids Screen Negative Alcohol, Quantitative < 10 Influenza Typ A,B (EIA) 02/14/18 02/14/18 02/14/18 18:50 19:00 19:00 WBC RBC Hgb Hct MCV MCH MCHC RDW Plt Count MPV Neut % (Auto) Lymph % (Auto) Otero % (Auto) Eos % (Auto) Baso % (Auto) Neut # (Auto) Lymph # (Auto) Otero # (Auto) Eos # (Auto) Baso # (Auto) pO2 41 VBG pH 7.47 H VBG pCO2 34 L VBG HCO3 25.6 VBG Total CO2 25.7 VBG O2 Sat (Calc) 80.6 H VBG Base Excess 1.5 VBG Potassium 3.9 Glucose 101 Lactate 0.7 FiO2 21.0 Sodium 138.0 Potassium Chloride 107.0 Carbon Dioxide Anion Gap BUN Creatinine Est GFR ( Amer) Est GFR (Non-Af Amer) POC Glucose (mg/dL) Random Glucose Calcium Magnesium Iron TIBC % Saturation Total Bilirubin AST ALT Alkaline Phosphatase Total Creatine Kinase 4328 H Troponin I NT-Pro-B Natriuret Pep Total Protein Albumin Globulin Albumin/Globulin Ratio Vitamin B12 Venous Blood Potassium 3.9 Urine Opiates Screen Urine Methadone Screen Ur Barbiturates Screen Ur Phencyclidine Scrn Ur Amphetamines Screen U Benzodiazepines Scrn U Oth Cocaine Metabols U Cannabinoids Screen Alcohol, Quantitative Influenza Typ A,B (EIA) Negative for flu a/b 02/14/18 02/15/18 02/15/18 21:45 01:50 06:19 WBC RBC Hgb Hct MCV MCH MCHC RDW Plt Count MPV Neut % (Auto) Lymph % (Auto) Otero % (Auto) Eos % (Auto) Baso % (Auto) Neut # (Auto) Lymph # (Auto) Otero # (Auto) Eos # (Auto) Baso # (Auto) pO2 VBG pH VBG pCO2 VBG HCO3 VBG Total CO2 VBG O2 Sat (Calc) VBG Base Excess VBG Potassium Glucose Lactate FiO2 Sodium Potassium Chloride Carbon Dioxide Anion Gap BUN Creatinine Est GFR ( Amer) Est GFR (Non-Af Amer) POC Glucose (mg/dL) 113 H Random Glucose Calcium Magnesium Iron TIBC % Saturation Total Bilirubin AST ALT Alkaline Phosphatase Total Creatine Kinase 4356 H Troponin I 0.3360 H* NT-Pro-B Natriuret Pep 7120 H Total Protein Albumin Globulin Albumin/Globulin Ratio Vitamin B12 256 Venous Blood Potassium Urine Opiates Screen Urine Methadone Screen Ur Barbiturates Screen Ur Phencyclidine Scrn Ur Amphetamines Screen U Benzodiazepines Scrn U Oth Cocaine Metabols U Cannabinoids Screen Alcohol, Quantitative Influenza Typ A,B (EIA) 02/15/18 06:19 WBC RBC Hgb Hct MCV MCH MCHC RDW Plt Count MPV Neut % (Auto) Lymph % (Auto) Otero % (Auto) Eos % (Auto) Baso % (Auto) Neut # (Auto) Lymph # (Auto) Otero # (Auto) Eos # (Auto) Baso # (Auto) pO2 VBG pH VBG pCO2 VBG HCO3 VBG Total CO2 VBG O2 Sat (Calc) VBG Base Excess VBG Potassium Glucose Lactate FiO2 Sodium Potassium Chloride Carbon Dioxide Anion Gap BUN Creatinine Est GFR ( Amer) Est GFR (Non-Af Amer) POC Glucose (mg/dL) Random Glucose Calcium Magnesium Iron < 10 L TIBC 210 L % Saturation 4.8 L Total Bilirubin AST ALT Alkaline Phosphatase Total Creatine Kinase Troponin I NT-Pro-B Natriuret Pep Total Protein Albumin Globulin Albumin/Globulin Ratio Vitamin B12 Venous Blood Potassium Urine Opiates Screen Urine Methadone Screen Ur Barbiturates Screen Ur Phencyclidine Scrn Ur Amphetamines Screen U Benzodiazepines Scrn U Oth Cocaine Metabols U Cannabinoids Screen Alcohol, Quantitative Influenza Typ A,B (EIA) reviewed J.P. - EKG Data EKG comments: reviewed J.P. - Imaging and Cardiology Chest x-ray Status: Report reviewed by me (JSkyP.) CT scan - head Status: Report reviewed by me (JSkyP.) Additional comment: Orbit X-Ray, Wrist X-Ray: All reviewed J.P. Assessment & Plan (1) Pneumonia Status: Acute Priority: High (2) HIV positive Status: Acute Priority: High (3) Rhabdomyolysis Status: Acute Priority: High - Assessment and Plan (Free Text) Plan: F/U ABG, Blood C-S, Sputum C-S, CT Chest, CD 4 count, LDH, Viral load, Bactrim IV, continue Zithromax, Rocephin and rest of Tx. ID consult, suggest ENT consult for severe sinusitis on CT - Date & Time Date: 02/15/18 Time: 12:00
[2018-02-15 17:31] LABS: FOLATE 13.7 ng/mL
--- NOTE | 2018-02-15 17:39 | CT ---
Date of service: 02/15/2018 PROCEDURE: CT Chest without contrast HISTORY: interstitial infiltrates, HIV screen + COMPARISON: Chest x-ray 02/15/2018 TECHNIQUE: Contiguous axial images were obtained through the chest without intravenous contrast enhancement. Sagittal and coronal reconstructions were performed. Radiation dose (DLP): 447 mGy-cm. This CT exam was performed using one or more of the following dose reduction techniques: Automated exposure control, adjustment of the mA and/or kV according to patient size, and/or use of iterative reconstruction technique. FINDINGS: LUNGS: There is evidence of bilateral lower lobe areas of mild pleural thickening and pleural parenchymal change. Small areas of additional mild interstitial change are identified at the lung bases. Within the left upper lobe anteriorly on axial image 55 series 3 there is a small subtle nodule and mild linear reticular change. This measures 4 millimeters in size. Mild additional nonspecific subtle interstitial change and interlobular thickening is noted, without alveolar ground-glass or significant bronchiectasis. There may also be some minor thickening in the anterior aspect of the right lower lobe and inferior lingula. MEDIASTINUM: Visualized thoracic inlet is unremarkable. There is however evidence of nonspecific mild right paratracheal, precarinal, prevascular lymph nodes. No gross hilar adenopathy is seen although the exam is limited by the lack of contrast. Pulmonary arteries are mildly prominent which may suggest an element of pulmonary artery hypertension. Heart is enlarged. There also appears to be calcific atherosclerotic change of the proximal aorta and some possible mild coronary artery calcification. Very small amount of pericardial fluid is also seen. No gross vascular congestion. No subcarinal lymphadenopathy. Visualized esophagus shows minor thickening which may suggest mild esophagitis. PLEURA: Mild nonspecific posterior pleural parenchymal thickening associated with previously described scarring interstitial change. BONES: Degenerative changes are noted in the spine. No destructive lesions are clearly seen. Sternum is intact. UPPER ABDOMEN: There is evidence of hepatosplenomegaly limited on this examination. Visualized stomach is unremarkable. OTHER FINDINGS: None. IMPRESSION: Nonspecific mild posterior pleural parenchymal changes including mild posterior pleural thickening. This may reflect infectious or inflammatory process. No segmental alveolar infiltrate seen. Nonspecific small area of nodularity in adjacent interstitial change in the left upper lobe with a nodule measuring 4 millimeters. Given the patient's history, this may require further clinical follow-up. No other appreciable nodules elsewhere. Nonspecific mild mediastinal lymph nodes. Small pericardial effusion. Moderate hepatosplenomegaly.
[2018-02-15 18:49] LABS: ABG ALLEN TEST YES; ARTERIAL BLOOD GAS HCO3 23.4 mmol/L (21-28); ARTERIAL BLOOD GAS HEMOGLOBIN 9.8 g/dL (11.7-17.4); ARTERIAL BLOOD GAS O2 CAPACITY 13.5 mL/dL (16-24); ARTERIAL BLOOD GAS O2 CONTENT 13.4 ML/dL (15-23); ARTERIAL BLOOD GAS O2 SAT 99.2 % (95-98); ARTERIAL BLOOD GAS PCO2 31 mm/Hg (35-45); ARTERIAL BLOOD GAS PH 7.45 (7.35-7.45); ARTERIAL BLOOD GAS PO2 89 mm/Hg (80-100); ARTERIAL BLOOD GAS TCO2 22.5 mmol/L (22-28)
[2018-02-15] MEDS: SULFAMETHOXAZOLE IVPB SCH (18:55)
[2018-02-15] MEDS: WATER IVPB SCH (18:55)
[2018-02-15] MEDS: TRIMETHOPRIM IVPB SCH (18:55)
[2018-02-15] MEDS: DEXTROSE 5% IVPB SCH (18:55)
[2018-02-16] MEDS: DEXTROSE 5% IVPB SCH (01:28)
[2018-02-16] MEDS: TRIMETHOPRIM IVPB SCH (01:28)
[2018-02-16] MEDS: WATER IVPB SCH (01:28)
[2018-02-16] MEDS: SULFAMETHOXAZOLE IVPB SCH (01:28)
[2018-02-16] MEDS: EnalaprilAT 1.25 mg/ml Inj IV SCH ×4 (04:02→21:15)
[2018-02-16 08:09] LABS: B-TYPE NATRIURETIC PEPTIDE 10700 pg/ml (0-450)
[2018-02-16 08:10] LABS: HEMOGLOBIN 9.9 g/dL (12.0-18.0); MEAN CELL VOLUME 82.9 fl (80.0-94.0); MEAN CORPUSCULAR HGB CONC 32.6 g/dL (33.0-37.0); RBC 3.66 Mil/uL (4.40-5.90); WHITE BLOOD COUNT 2.8 K/uL (4.8-10.8)
[2018-02-16 08:12] LABS: ALB/GLOB RATIO 0.6 (1.0-2.1); ALBUMIN 2.8 g/dL (3.5-5.0); ALT/SGPT 46 U/L (21-72); AST/SGOT 113 U/L (17-59); BLOOD UREA NITROGEN 18 mg/dl (9-20); CALCIUM 7.7 mg/dL (8.4-10.2); GFR NON-AFRICAN AMERICAN > 60
[2018-02-16] MEDS: Enoxaparin 40 mg Syringe SC SCH (09:07)
[2018-02-16] MEDS: Azithromycin 500 MG in Sodium Chloride 0.9% 250 ML IVPB SCH (09:13)
--- NOTE | 2018-02-16 10:30 | CP.PCM.PN ---
<Nakia Jim - Last Filed: 02/16/18 14:49> Subjective - Date & Time of Evaluation Date of Evaluation: 02/16/18 Time of Evaluation: 10:46 - Subjective Subjective: Patient was seen and evaluated this AM. Patient states he slept well, and is tolerating regular diet w/o complaints. He denied any fever, chills, headaches, chest pain, shortness of breath of abdominal pain. Objective - Vital Signs/Intake and Output Vital Signs (last 24 hours): Temp Pulse Resp BP Pulse Ox 98.5 F 98 H 16 118/79 96 02/16/18 08:20 02/16/18 08:20 02/16/18 08:20 02/16/18 08:20 02/16/18 08:20 Intake and Output: 02/16/18 02/16/18 06:59 18:59 Output Total 500 Balance -500 - Medications Medications: Current Medications Acetaminophen (Tylenol 325mg Tab) 650 mg PO Q4 PRN PRN Reason: Fever >100.4 F Last Admin: 02/15/18 12:13 Dose: 650 mg Aspirin (Aspirin) 325 mg PO DAILY [facility] Last Admin: 02/16/18 09:04 Dose: 325 mg Clopidogrel Bisulfate (Plavix) 75 mg PO DAILY [facility] Last Admin: 02/16/18 09:07 Dose: 75 mg Cyanocobalamin (Vitamin B12 1000 Mcg/Ml Inj) 1,000 mcg IM DAILY [facility] Stop: 02/17/18 09:01 Last Admin: 02/16/18 09:24 Dose: 1,000 mcg Enalaprilat (Vasotec Iv) 1.25 mg IV Q6 [facility] Last Admin: 02/16/18 09:12 Dose: Not Given Enoxaparin Sodium (Lovenox) 40 mg SC DAILY [facility]; Protocol Last Admin: 02/16/18 09:07 Dose: 40 mg Ferrous Sulfate (Feosol) 325 mg PO DAILY [facility] Last Admin: 02/16/18 09:07 Dose: 325 mg Azithromycin 500 mg/ Sodium (Chloride) 250 mls @ 250 mls/hr IVPB DAILY [facility]; Protocol Last Admin: 02/16/18 09:13 Dose: 250 mls/hr Ceftriaxone Sodium 1 gm/ (Sodium Chloride) 100 mls @ 100 mls/hr IVPB Q12 [facility]; Protocol Last Admin: 02/16/18 09:11 Dose: 100 mls/hr Lorazepam (Ativan) 2 mg IVP STAT PRN PRN Reason: Seizure activity Lorazepam (Ativan) 1 mg IVP Q6H PRN PRN Reason: Agitation Losartan Potassium (Cozaar) 100 mg PO DAILY [facility] Last Admin: 02/16/18 09:06 Dose: 100 mg - Labs Labs: 02/16/18 06:12 02/16/18 06:12 - Constitutional Appears: Non-toxic, No Acute Distress - Head Exam Additional comments: abrasion with dried blood noted over right eyebrow - Neck Exam Neck Exam: Full ROM - Respiratory Exam Respiratory Exam: Clear to Ausculation Bilateral - Cardiovascular Exam Cardiovascular Exam: REGULAR RHYTHM, +S1, +S2 - GI/Abdominal Exam GI & Abdominal Exam: Soft, Normal Bowel Sounds Additional comments: no tenderness, rigidity or guarding - Extremities Exam Additional comments: calves nontender, no edema Assessment and Plan - Assessment and Plan (Free Text) Assessment: 47 yr old male with PMHx of uncontrolled hypertension, seizures and cocaine abuse admitted for to have pneumonia and rhabdomyolysis. (1) + HIV screen -Awaiting confirmatory test, viral load, and CD4 count. (2) Elevated troponin (Acute) -Likely due to rhabomyolysis and cocaine abuse; unlikely due to [place] as per cardio. -Troponin was 0.3360 on admission; last level 0.1590/ -Continue Aspirin 325 PO QD -Continue Plavix 75 mg PO QD -Continue Losartan 100mg PO QD -Continue to hold statins due to rhabdomyolysis -Continue to hold beta blockers due to + cocaine use. -Awaiting echo results. -Cardio consulted & discussed with Dr Skyler stoner. (3) Cocaine abuse( Acute ) - Urine tox positive for cocaine . (4) Pneumonia (Acute) -Dr. Navarro recommendations have been appreciated. -Dr. Raman recommendations have been appreciated. -CXR showed Interstitial infiltrates/Alveolar infiltrates which could be bacterial pneumonia or possibly due to cocaine inhalation -Continue IV Ceftriaxone 1 g BID -Continue Azithromycin 500mg QD -Continue Bactrim 1 tab PO Q8 until CD4 returns, and if >200 will discontinue as per Dr. Raman. -Awaiting Mycoplasma & Legionella results. -Sputum cultures have been uncollected. -Awaiting repeat blood cultures. (5) Rhabdomyolysis (Acute) -CPK elevated more than likely due to fall as well as cocaine use. -Continue IV fluid hydration. (6) Fall (Acute) -Hip/pelvic, wrist, & shoulder x-rays performed on 02/14/2018 were negative for fracture. -CT of head performed on 02/14/2018 negative for acute bleed. -CT of orbit performed on 02/14/2018 was negative for acute fracture. (7) Bacteremia (Acute) -Dr. Raman recommendations have been appreciated. -Blood culture + for Gram neg rods. - Continue IV Ceftriaxone 1 g BID -Continue Azithromycin 500mg QD -Awaiting results for urinalysis, repeat blood, and urine culture. (8) Iron Def Anemia, chronic -Continue Ferrous sulfate 325 PO QD (9) B12 Def - Continue cyanocobalamine 1000mcg IM QD (10) DVT proph - Continue lovenox 40mg SC QD <Leonela Sosa - Last Filed: 02/16/18 15:23> Objective - Vital Signs/Intake and Output Vital Signs (last 24 hours): Temp Pulse Resp BP Pulse Ox 98.2 F 83 16 127/79 99 02/16/18 12:36 02/16/18 12:36 02/16/18 12:36 02/16/18 12:36 02/16/18 12:36 Intake and Output: 02/16/18 02/16/18 06:59 18:59 Output Total 500 Balance -500 - Medications Medications: Current Medications Acetaminophen (Tylenol 325mg Tab) 650 mg PO Q4 PRN PRN Reason: Fever >100.4 F Last Admin: 02/15/18 12:13 Dose: 650 mg Aspirin (Aspirin) 325 mg PO DAILY [facility] Last Admin: 02/16/18 09:04 Dose: 325 mg Clopidogrel Bisulfate (Plavix) 75 mg PO DAILY [facility] Last Admin: 02/16/18 09:07 Dose: 75 mg Cyanocobalamin (Vitamin B12 1000 Mcg/Ml Inj) 1,000 mcg IM DAILY [facility] Stop: 02/17/18 09:01 Last Admin: 02/16/18 09:24 Dose: 1,000 mcg Enalaprilat (Vasotec Iv) 1.25 mg IV Q6 [facility] Last Admin: 02/16/18 09:12 Dose: Not Given Enoxaparin Sodium (Lovenox) 40 mg SC DAILY [facility]; Protocol Last Admin: 02/16/18 09:07 Dose: 40 mg Ferrous Sulfate (Feosol) 325 mg PO DAILY [facility] Last Admin: 02/16/18 09:07 Dose: 325 mg Azithromycin 500 mg/ Sodium (Chloride) 250 mls @ 250 mls/hr IVPB DAILY [facility]; Protocol Last Admin: 02/16/18 09:13 Dose: 250 mls/hr Ceftriaxone Sodium 1 gm/ (Sodium Chloride) 100 mls @ 100 mls/hr IVPB Q12 [facility]; Protocol Last Admin: 02/16/18 09:11 Dose: 100 mls/hr Sodium Chloride (Sodium Chloride 0.9%) 1,000 mls @ 200 mls/hr IV .Q5H [facility] Stop: 02/17/18 11:02 Lorazepam (Ativan) 2 mg IVP STAT PRN PRN Reason: Seizure activity Lorazepam (Ativan) 1 mg IVP Q6H PRN PRN Reason: Agitation Losartan Potassium (Cozaar) 100 mg PO DAILY [facility] Last Admin: 02/16/18 09:06 Dose: 100 mg Trimethoprim/Sulfamethoxazole (Bactrim Ds Tab) 1 tab PO Q8 [facility]; Protocol Last Admin: 02/16/18 11:11 Dose: Not Given - Labs Labs: 02/16/18 06:12 02/16/18 06:12 Assessment and Plan (1) Elevated troponin Status: Acute (2) Cocaine abuse Status: Acute (3) Pneumonia Status: Acute (4) Rhabdomyolysis Status: Acute (5) Fall Status: Acute Attending/Attestation - Attestation I have personally seen and examined this patient.: Yes I have fully participated in the care of the patient.: Yes I have reviewed all pertinent clinical information, including history, physical exam and plan: Yes
[2018-02-16] MEDS: Tmp-Smz 800 mg-160 mg DS Tab PO SCH ×2 (11:11→17:45)
--- NOTE | 2018-02-16 12:45 | CARD ---
APPROVED REPORT Date of service: 02/15/2018 EKG Measurement Heart [id number] <Conclusion> Sinus tachycardia Low voltage QRS Nonspecific T wave abnormality Prolonged QT Abnormal ECG
[2018-02-16] MEDS: Sodium Chloride 0.9% 1,000 ML IV SCH (17:50)
--- NOTE | 2018-02-16 18:16 | CP.PCM.CON ---
History of Present Illness - History of Present Illness History of Present Illness: 47 yr old homeless M presents to ED with complaint of right face laceration and right hip pain after fall. Reported he turned too quickly and felt dizzy and fell, was not able to get off the floor, suffered cut to right face, denied LOC. Pt says he feels much better now. Past Patient History - Infectious Disease Hx of Infectious Diseases: None - Tetanus Immunizations Tetanus Immunization: Unknown - Past Social History Smoking Status: Never Smoked Alcohol: None Drugs: Cocaine (abuse) - CARDIAC Hx Cardiac Disorders: Yes Hx Hypertension: Yes - PULMONARY Hx Respiratory Disorders: No - NEUROLOGICAL Hx Neurological Disorder: Yes Hx Seizures: Yes - HEENT Hx HEENT Problems: No - RENAL Hx Chronic Kidney Disease: No - ENDOCRINE/METABOLIC Hx Endocrine Disorders: No - HEMATOLOGICAL/ONCOLOGICAL Hx Blood Disorders: No Hx Blood Transfusions: No Hx Blood Transfusion Reaction: No - INTEGUMENTARY Hx Dermatological Problems: Yes Hx Cellulitis: Yes - MUSCULOSKELETAL/RHEUMATOLOGICAL Hx Falls: Yes Hx Fractures: Yes (left ankle fx twice, r great toe fx, r 5th toe fx) - GASTROINTESTINAL Hx Gastrointestinal Disorders: No - GENITOURINARY/GYNECOLOGICAL Hx Genitourinary Disorders: No - PSYCHIATRIC Hx Depression: No - SURGICAL HISTORY Hx Surgeries: Yes Hx Cardiac Catheterization: Yes (with 1 stent placement) Hx Orthopedic Surgery: Yes Other/Comment: torn meniscus left knee and skin graft - ANESTHESIA Hx Anesthesia: Yes Hx Anesthesia Reactions: No Hx Malignant Hyperthermia: No Meds Allergies/Adverse Reactions: Allergies Allergy/AdvReac Type Severity Reaction Status Date / Time No Known Allergies Allergy Verified 02/14/18 13:36 - Medications Medications: Current Medications Acetaminophen (Tylenol 325mg Tab) 650 mg PO Q4 PRN PRN Reason: Fever >100.4 F Last Admin: 02/15/18 12:13 Dose: 650 mg Aspirin (Aspirin) 325 mg PO DAILY [facility] Last Admin: 02/16/18 09:04 Dose: 325 mg Clopidogrel Bisulfate (Plavix) 75 mg PO DAILY [facility] Last Admin: 02/16/18 09:07 Dose: 75 mg Cyanocobalamin (Vitamin B12 1000 Mcg/Ml Inj) 1,000 mcg IM DAILY [facility] Stop: 02/17/18 09:01 Last Admin: 02/16/18 09:24 Dose: 1,000 mcg Enalaprilat (Vasotec Iv) 1.25 mg IV Q6 [facility] Last Admin: 02/16/18 17:51 Dose: Not Given Enoxaparin Sodium (Lovenox) 40 mg SC DAILY [facility]; Protocol Last Admin: 02/16/18 09:07 Dose: 40 mg Ferrous Sulfate (Feosol) 325 mg PO DAILY [facility] Last Admin: 02/16/18 09:07 Dose: 325 mg Azithromycin 500 mg/ Sodium (Chloride) 250 mls @ 250 mls/hr IVPB DAILY [facility]; Protocol Last Admin: 02/16/18 09:13 Dose: 250 mls/hr Ceftriaxone Sodium 1 gm/ (Sodium Chloride) 100 mls @ 100 mls/hr IVPB Q12 [facility]; Protocol Last Admin: 02/16/18 09:11 Dose: 100 mls/hr Sodium Chloride (Sodium Chloride 0.9%) 1,000 mls @ 200 mls/hr IV .Q5H [facility] Stop: 02/17/18 11:02 Last Admin: 02/16/18 17:50 Dose: 200 mls/hr Lorazepam (Ativan) 2 mg IVP STAT PRN PRN Reason: Seizure activity Lorazepam (Ativan) 1 mg IVP Q6H PRN PRN Reason: Agitation Losartan Potassium (Cozaar) 100 mg PO DAILY [facility] Last Admin: 02/16/18 09:06 Dose: 100 mg Trimethoprim/Sulfamethoxazole (Bactrim Ds Tab) 1 tab PO Q8 [facility]; Protocol Last Admin: 02/16/18 17:45 Dose: 1 tab Results - Vital Signs Recent Vital Signs: Last Vital Signs Temp 98.4 F 02/16/18 16:18 Pulse 86 02/16/18 16:18 Resp 16 02/16/18 16:18 BP 112/76 02/16/18 16:18 Pulse Ox 98 02/16/18 16:18 - Labs Result Diagrams: 02/16/18 06:12 02/16/18 06:12 Labs: Laboratory Results - last 24 hr 02/15/18 02/15/18 02/16/18 10:06 18:44 06:12 WBC 2.8 L RBC 3.66 L Hgb 9.9 L Hct 30.4 L MCV 82.9 MCH 27.0 MCHC 32.6 L RDW 16.0 H Plt Count 113 L D pCO2 31 L pO2 89 HCO3 23.4 ABG pH 7.45 ABG Total CO2 22.5 ABG O2 Saturation 99.2 H ABG O2 Content 13.4 L ABG Base Excess -1.9 ABG Hemoglobin 9.8 L ABG Carboxyhemoglobin 1.7 H POC ABG HHb (Measured) 0.8 ABG Methemoglobin 1.5 ABG O2 Capacity 13.5 L Ricci Test Yes A-a O2 Difference 22.0 Hgb O2 Saturation 96.0 FiO2 21.0 Sodium Potassium Chloride Carbon Dioxide Anion Gap BUN Creatinine Est GFR ( Amer) Est GFR (Non-Af Amer) Random Glucose Calcium Phosphorus Magnesium Total Bilirubin AST ALT Alkaline Phosphatase Total Creatine Kinase NT-Pro-B Natriuret Pep Total Protein Albumin Globulin Albumin/Globulin Ratio Procalcitonin 0.82 H 02/16/18 06:12 WBC RBC Hgb Hct MCV MCH MCHC RDW Plt Count pCO2 pO2 HCO3 ABG pH ABG Total CO2 ABG O2 Saturation ABG O2 Content ABG Base Excess ABG Hemoglobin ABG Carboxyhemoglobin POC ABG HHb (Measured) ABG Methemoglobin ABG O2 Capacity Ricci Test A-a O2 Difference Hgb O2 Saturation FiO2 Sodium 139 Potassium 3.8 Chloride 110 H Carbon Dioxide 21 L Anion Gap 12 BUN 18 Creatinine 0.9 Est GFR ( Amer) > 60 Est GFR (Non-Af Amer) > 60 Random Glucose 101 Calcium 7.7 L Phosphorus 3.1 Magnesium 2.4 H Total Bilirubin 0.2 AST 113 H ALT 46 Alkaline Phosphatase 76 Total Creatine Kinase 2847 H NT-Pro-B Natriuret Pep 35538 H Total Protein 7.4 Albumin 2.8 L D Globulin 4.6 H Albumin/Globulin Ratio 0.6 L Procalcitonin Assessment & Plan - Assessment and Plan (Free Text) Assessment: HIV positive with bilateral infiltrates seem to have improved on CT vs previous X ray findings most likely were from cocaine use. Would discontinue Ceftriaxone and Azithromycin at this time. d/c bactrim once we have T calls more than 50 rhabdomyolysis with cocaine use. Agree with CD4 count and viral load Make appointment with [facility] for follow up
--- NOTE | 2018-02-16 22:29 | CP.PCM.PN ---
Subjective - Date & Time of Evaluation Date of Evaluation: 02/16/18 Time of Evaluation: 14:00 - Subjective Subjective: F/U PNA No A/D, no SOB, no cough, no WHITLOCK. Objective - Vital Signs/Intake and Output Vital Signs (last 24 hours): Temp Pulse Resp BP Pulse Ox 97.4 F L 91 H 16 115/83 100 02/16/18 20:31 02/16/18 20:31 02/16/18 20:31 02/16/18 21:15 02/16/18 20:31 Intake and Output: 02/16/18 02/17/18 18:59 06:59 Intake Total 3400 Output Total 800 Balance 2600 - Medications Medications: Current Medications Acetaminophen (Tylenol 325mg Tab) 650 mg PO Q4 PRN PRN Reason: Fever >100.4 F Last Admin: 02/15/18 12:13 Dose: 650 mg Aspirin (Aspirin) 325 mg PO DAILY [facility] Last Admin: 02/16/18 09:04 Dose: 325 mg Clopidogrel Bisulfate (Plavix) 75 mg PO DAILY [facility] Last Admin: 02/16/18 09:07 Dose: 75 mg Cyanocobalamin (Vitamin B12 1000 Mcg/Ml Inj) 1,000 mcg IM DAILY [facility] Stop: 02/17/18 09:01 Last Admin: 02/16/18 09:24 Dose: 1,000 mcg Enalaprilat (Vasotec Iv) 1.25 mg IV Q6 [facility] Last Admin: 02/16/18 21:15 Dose: Not Given Enoxaparin Sodium (Lovenox) 40 mg SC DAILY [facility]; Protocol Last Admin: 02/16/18 09:07 Dose: 40 mg Ferrous Sulfate (Feosol) 325 mg PO DAILY [facility] Last Admin: 02/16/18 09:07 Dose: 325 mg Sodium Chloride (Sodium Chloride 0.9%) 1,000 mls @ 200 mls/hr IV .Q5H [facility] Stop: 02/17/18 11:02 Last Admin: 02/16/18 17:50 Dose: 200 mls/hr Lorazepam (Ativan) 2 mg IVP STAT PRN PRN Reason: Seizure activity Lorazepam (Ativan) 1 mg IVP Q6H PRN PRN Reason: Agitation Losartan Potassium (Cozaar) 100 mg PO DAILY [facility] Last Admin: 02/16/18 09:06 Dose: 100 mg Trimethoprim/Sulfamethoxazole (Bactrim Ds Tab) 1 tab PO Q8 [facility]; Protocol Last Admin: 02/16/18 17:45 Dose: 1 tab - Labs Labs: 02/16/18 06:12 02/16/18 06:12 - Constitutional Appears: No Acute Distress - Head Exam Additional comments: Superficial laceration repair, abrasion, bruising on face. - Eye Exam Eye Exam: PERRL - ENT Exam ENT Exam: Mucous Membranes Moist - Neck Exam Neck Exam: Normal Inspection - Respiratory Exam Respiratory Exam: Rhonchi (few scattered) - Cardiovascular Exam Cardiovascular Exam: Irregular Rhythm - GI/Abdominal Exam GI & Abdominal Exam: Soft, Normal Bowel Sounds - Extremities Exam Additional comments: abrasion CHRISTIAN arm - Neurological Exam Neurological Exam: Alert, Oriented x3 Additional comments: Follows commands, moves all extremities. - Skin Skin Exam: Abrasion, Warm Assessment and Plan (1) Pneumonia Status: Acute (2) HIV positive Status: Acute (3) Rhabdomyolysis Status: Acute - Assessment and Plan (Free Text) Plan: Continue Zithromax, Ceftriaxone and rest of Tx.
[2018-02-17] MEDS: Tmp-Smz 800 mg-160 mg DS Tab PO SCH ×2 (00:11→08:53)
[2018-02-17] MEDS: EnalaprilAT 1.25 mg/ml Inj IV SCH ×2 (04:24→09:58)
[2018-02-17 06:50] LABS: BASO % 0.6 % (0.0-2.0); HEMOGLOBIN 10.2 g/dL (12.0-18.0); LYMPH # 1.3 K/uL (1.0-4.3); LYMPH % 38.5 % (20.0-40.0); MEAN CORPUSCULAR HEMOGLOBIN 26.7 pg (27.0-31.0); MEAN CORPUSCULAR HGB CONC 31.8 g/dL (33.0-37.0); MONO # 0.3 K/uL (0.0-0.8); MONO % 10.1 % (0.0-10.0); NEUT # 1.7 K/uL (1.8-7.0); NEUT % 50.8 % (50.0-75.0); NRBC % 0.2 % (0.0-0.0); RBC 3.82 Mil/uL (4.40-5.90); RED CELL DISTRIBUTION WIDTH 16.3 % (11.5-14.5); WHITE BLOOD COUNT 3.3 K/uL (4.8-10.8)
[2018-02-17 06:58] LABS: BLOOD UREA NITROGEN 15 mg/dl (9-20); CALCIUM 7.8 mg/dL (8.4-10.2); GFR NON-AFRICAN AMERICAN > 60
[2018-02-17] MEDS: Enoxaparin 40 mg Syringe SC SCH (08:54)
[2018-02-17] MEDS: Sodium Chloride 0.9% 1,000 ML IV SCH (08:55)
[2018-02-17 08:56] VITALS: PULSE 91
[2018-02-17 09:23] VITALS: RESP 20; TEMP 97.6; O2SAT 95
[2018-02-17] MEDS ORDERED: Pneumococcal 23-Valent Vaccine IM ONE (09:41)
[2018-02-17] MEDS ORDERED: Influenza Vaccine 60 MCG/0.5 ML SYR (3 yr & up) IM ONE (09:41)
[2018-02-17 09:59] VITALS: BP 131/81
--- NOTE | 2018-02-17 10:11 | CP.PCM.PN ---
<Harpal Owen - Last Filed: 02/17/18 11:41> Subjective - Date & Time of Evaluation Date of Evaluation: 02/17/18 Time of Evaluation: 10:07 - Subjective Subjective: 47 y/o male patient was seen and evaluated at bedside this morning. Patient was resting comfortably, and states he would like to go home today as he has work. Patient reports he feels much better, and patient denies any fever, chills, headaches, chest pain, shortness of breath of abdominal pain. Patient was being evaluated by physical therapy, and as per PT, patient baseline unsteady. Patient poor historian, however patient oriented x3. - Patient is aware of HIV status, pending final confirmatory tests, HIV-1 Ab rapid Screen Ab/Ag reactive H. 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 Objective - Vital Signs/Intake and Output Vital Signs (last 24 hours): Temp Pulse Resp BP Pulse Ox 97.6 F 91 H 20 131/81 95 02/17/18 09:22 02/17/18 09:22 02/17/18 09:22 02/17/18 09:58 02/17/18 09:22 Intake and Output: 02/17/18 02/17/18 06:59 18:59 Intake Total 1200 Output Total 200 Balance 1000 - Medications Medications: Current Medications Acetaminophen (Tylenol 325mg Tab) 650 mg PO Q4 PRN PRN Reason: Fever >100.4 F Last Admin: 02/15/18 12:13 Dose: 650 mg Aspirin (Aspirin) 325 mg PO DAILY [facility] Last Admin: 02/17/18 09:58 Dose: 325 mg Clopidogrel Bisulfate (Plavix) 75 mg PO DAILY [facility] Last Admin: 02/17/18 08:54 Dose: 75 mg Enalaprilat (Vasotec Iv) 1.25 mg IV Q6 [facility] Last Admin: 02/17/18 09:58 Dose: Not Given Enoxaparin Sodium (Lovenox) 40 mg SC DAILY [facility]; Protocol Last Admin: 02/17/18 08:54 Dose: 40 mg Ferrous Sulfate (Feosol) 325 mg PO DAILY [facility] Last Admin: 02/17/18 08:53 Dose: 325 mg Sodium Chloride (Sodium Chloride 0.9%) 1,000 mls @ 200 mls/hr IV .Q5H [facility] Stop: 02/17/18 11:02 Last Admin: 02/17/18 08:55 Dose: 200 mls/hr Influenza Virus Vaccine (Fluzone Quad [id number]) 60 mcg IM .ONCE ONE Stop: 02/17/18 09:42 Lorazepam (Ativan) 2 mg IVP STAT PRN PRN Reason: Seizure activity Lorazepam (Ativan) 1 mg IVP Q6H PRN PRN Reason: Agitation Losartan Potassium (Cozaar) 100 mg PO DAILY [facility] Last Admin: 02/17/18 08:53 Dose: 100 mg Pneumococcal Polyvalent Vaccine (Pneumovax 23 Vaccine) 0.5 ml IM .ONCE ONE Stop: 02/17/18 09:42 Trimethoprim/Sulfamethoxazole (Bactrim Ds Tab) 1 tab PO Q8 [facility]; Protocol Last Admin: 02/17/18 08:53 Dose: 1 tab - Labs Labs: 02/17/18 05:45 02/17/18 05:45 - Constitutional Appears: Well, Non-toxic, No Acute Distress - Head Exam Head Exam: ATRAUMATIC, NORMOCEPHALIC - Eye Exam Eye Exam: Normal appearance, PERRL - ENT Exam ENT Exam: Mucous Membranes Moist - Neck Exam Neck Exam: Full ROM - Respiratory Exam Respiratory Exam: Clear to Ausculation Bilateral, NORMAL BREATHING PATTERN. absent: Rales, Rhonchi, Wheezes, Respiratory Distress - Cardiovascular Exam Cardiovascular Exam: REGULAR RHYTHM, +S1, +S2 - GI/Abdominal Exam GI & Abdominal Exam: Soft, Normal Bowel Sounds. absent: Guarding, Rigid - Extremities Exam Extremities Exam: absent: Calf Tenderness - Neurological Exam Neurological Exam: Alert, Awake - Psychiatric Exam Psychiatric exam: Normal Affect, Normal Mood - Skin Skin Exam: Normal Color Assessment and Plan - Assessment and Plan (Free Text) Assessment: 47 y/o male with PMHx of uncontrolled hypertension, seizures and cocaine abuse admitted for fall, found to have pneumonia and rhabdomyolysis. Plan: (1) + HIV screen -Awaiting confirmatory test, viral load, and CD4 count -Patient to be seen by social work today, patient advised not to sign out against medical advice (2) Elevated troponin (Acute) -Likely due to rhabomyolysis and cocaine abuse; unlikely due to TN as per cardio -Troponin was 0.3360 on admission; last level 0.1590 -Continue Aspirin 325 PO QD -Continue Plavix 75 mg PO QD -Continue Losartan 100mg PO QD -Continue to hold statins due to rhabdomyolysis -Continue to hold beta blockers due to + cocaine use. -Awaiting echo results- patient scheduled for ECHO today 02/17/18 -Cardio consulted & discussed with Dr Skyler Kearney (3) Cocaine abuse - Urine tox positive for cocaine (4) Pneumonia (Acute) -Dr. Navarro recommendations have been appreciated. -Dr. Raman recommendations have been appreciated. -CXR showed Interstitial infiltrates/Alveolar infiltrates which could be bacteri al pneumonia or possibly due to cocaine inhalation -Continue Bactrim 1 tab PO Q8 until CD4 returns, and if >200 will discontinue as per Dr. Raman -Awaiting Mycoplasma & Legionella results -Sputum cultures have been uncollected -Awaiting repeat blood cultures- Pending (5) Rhabdomyolysis (Acute) -CPK rending down -Continue IV fluid hydration (6) Fall (Acute) -Hip/pelvic, wrist, & shoulder x-rays performed on 02/14/2018 were negative for fracture -CT of head performed on 02/14/2018 negative for acute bleed. -CT of orbit performed on 02/14/2018 was negative for acute fracture -Patient evaluated by Physical therapy for unsteady gait (7) Bacteremia (Acute) -Dr. Raman recommendations have been appreciated -Blood culture + for Gram neg rods. -Urine Culture- final, no growth (8) Iron Def Anemia, chronic -Continue Ferrous sulfate 325 PO QD (9) B12 Def - Continue cyanocobalamine 1000mcg IM QD (10) DVT prophylaxis - Continue lovenox 40mg SC QD <Leonela Sosa - Last Filed: 02/17/18 16:23> Objective - Vital Signs/Intake and Output Vital Signs (last 24 hours): Temp Pulse Resp BP Pulse Ox 97.6 F 91 H 20 131/81 95 02/17/18 09:22 02/17/18 09:22 02/17/18 09:22 02/17/18 09:58 02/17/18 09:22 Intake and Output: 02/17/18 02/17/18 06:59 18:59 Intake Total 1200 Output Total 200 Balance 1000 - Labs Labs: 02/17/18 05:45 02/17/18 05:45 Assessment and Plan (1) Elevated troponin Status: Acute (2) Cocaine abuse Status: Acute (3) Pneumonia Status: Acute (4) Rhabdomyolysis Status: Acute (5) Fall Status: Acute Attending/Attestation - Attestation I have personally seen and examined this patient.: Yes I have fully participated in the care of the patient.: Yes I have reviewed all pertinent clinical information, including history, physical exam and plan: Yes
--- NOTE | 2018-02-17 12:18 | CP.PCM.DIS ---
Addendum entered by Leonela Sosa MD 03/03/18 17:44: AIDS , CD$ Count =51 Original Note: <Harpal Owen - Last Filed: 02/17/18 12:35> Provider - Provider Date of Admission: 02/14/18 20:31 Attending physician: Ismael Garrett Primary care physician: NO FAMILY PROVIDER Time Spent in preparation of Discharge (in minutes): 30 Hospital Course - Lab Results Lab Results: Micro Results 02/16/18 07:12 Blood Blood Culture - Preliminary NO GROWTH AFTER 24 HOURS 02/16/18 07:02 Blood Blood Culture - Preliminary NO GROWTH AFTER 24 HOURS 02/14/18 19:00 Blood Blood Culture - Preliminary Gram Negative Adan 02/14/18 19:00 Blood Gram Stain - Final 02/14/18 19:20 Urine Urine Culture - Final No Growth (<1,000 CFU/ML) Most Recent Lab Values WBC 3.3 K/uL (4.8-10.8) L 02/17/18 05:45 RBC 3.82 Mil/uL (4.40-5.90) L 02/17/18 05:45 Hgb 10.2 g/dL (12.0-18.0) L 02/17/18 05:45 Hct 32.1 % (35.0-51.0) L 02/17/18 05:45 MCV 84.0 fl (80.0-94.0) 02/17/18 05:45 MCH 26.7 pg (27.0-31.0) L 02/17/18 05:45 MCHC 31.8 g/dL (33.0-37.0) L 02/17/18 05:45 RDW 16.3 % (11.5-14.5) H 02/17/18 05:45 Plt Count 117 K/uL (130-400) L 02/17/18 05:45 MPV 9.0 fl (7.2-11.7) 02/17/18 05:45 Neut % (Auto) 50.8 % (50.0-75.0) 02/17/18 05:45 Lymph % (Auto) 38.5 % (20.0-40.0) 02/17/18 05:45 [place] % (Auto) 10.1 % (0.0-10.0) H 02/17/18 05:45 Eos % (Auto) 0.0 % (0.0-4.0) 02/17/18 05:45 Baso % (Auto) 0.6 % (0.0-2.0) 02/17/18 05:45 Neut # (Auto) 1.7 K/uL (1.8-7.0) L 02/17/18 05:45 Lymph # (Auto) 1.3 K/uL (1.0-4.3) 02/17/18 05:45 [place] # (Auto) 0.3 K/uL (0.0-0.8) 02/17/18 05:45 Eos # (Auto) 0.0 K/uL (0.0-0.7) 02/17/18 05:45 Baso # (Auto) 0.0 K/uL (0.0-0.2) 02/17/18 05:45 pCO2 31 mm/Hg (35-45) L 02/15/18 18:44 pO2 89 mm/Hg (80-100) 02/15/18 18:44 HCO3 23.4 mmol/L (21-28) 02/15/18 18:44 ABG pH 7.45 (7.35-7.45) 02/15/18 18:44 ABG Total CO2 22.5 mmol/L (22-28) 02/15/18 18:44 ABG O2 Saturation 99.2 % (95-98) H 02/15/18 18:44 ABG O2 Content 13.4 ML/dL (15-23) L 02/15/18 18:44 ABG Base Excess -1.9 mmol/L (-2.0-3.0) 02/15/18 18:44 ABG Hemoglobin 9.8 g/dL (11.7-17.4) L 02/15/18 18:44 ABG Carboxyhemoglobin 1.7 % (0.5-1.5) H 02/15/18 18:44 POC ABG HHb (Measured) 0.8 % (0.0-5.0) 02/15/18 18:44 ABG Methemoglobin 1.5 % (0.0-3.0) 02/15/18 18:44 ABG O2 Capacity 13.5 mL/dL (16-24) L 02/15/18 18:44 Ricci Test Yes 02/15/18 18:44 VBG pH 7.47 (7.32-7.43) H 02/14/18 18:50 VBG pCO2 34 mmHg (40-60) L 02/14/18 18:50 VBG HCO3 25.6 mmol/L 02/14/18 18:50 VBG Total CO2 25.7 mmol/L (22-28) 02/14/18 18:50 VBG O2 Sat (Calc) 80.6 % (40-65) H 02/14/18 18:50 VBG Base Excess 1.5 mmol/L (0.0-2.0) 02/14/18 18:50 VBG Potassium 3.9 mmol/L (3.6-5.2) 02/14/18 18:50 A-a O2 Difference 22.0 mm/Hg 02/15/18 18:44 Hgb O2 Saturation 96.0 % (95.0-98.0) 02/15/18 18:44 Sodium 138.0 mmol/L (132-148) 02/14/18 18:50 Chloride 107.0 mmol/L (98-107) 02/14/18 18:50 Glucose 101 mg/dL (75-110) 02/14/18 18:50 Lactate 0.7 mmol/L (0.7-2.1) 02/14/18 18:50 FiO2 21.0 % 02/15/18 18:44 Sodium 141 mmol/l (132-148) 02/17/18 05:45 Potassium 4.0 MMOL/L (3.6-5.0) 02/17/18 05:45 Chloride 111 mmol/L (98-107) H 02/17/18 05:45 Carbon Dioxide 23 mmol/L (22-30) 02/17/18 05:45 Anion Gap 11 (10-20) 02/17/18 05:45 BUN 15 mg/dl (9-20) 02/17/18 05:45 Creatinine 0.9 mg/dl (0.8-1.5) 02/17/18 05:45 Est GFR ( Amer) > 60 02/17/18 05:45 Est GFR (Non-Af Amer) > 60 02/17/18 05:45 POC Glucose (mg/dL) 113 mg/dL (65-110) H 02/15/18 01:50 Random Glucose 96 mg/dL (75-110) 02/17/18 05:45 Calcium 7.8 mg/dL (8.4-10.2) L 02/17/18 05:45 Phosphorus 3.1 mg/dl (2.5-4.5) 02/16/18 06:12 Magnesium 2.4 MG/DL (1.6-2.3) H 02/16/18 06:12 Iron < 10 ug/dL (49-181) L 02/15/18 06:19 TIBC 210 ug/dL (250-450) L 02/15/18 06:19 % Saturation 4.8 % (20-55) L 02/15/18 06:19 Total Bilirubin 0.2 mg/dl (0.2-1.3) 02/16/18 06:12 AST 113 U/L (17-59) H 02/16/18 06:12 ALT 46 U/L (21-72) 02/16/18 06:12 Alkaline Phosphatase 76 U/L (38-126) 02/16/18 06:12 Lactate Dehydrogenase 696 U/L (313-618) H 02/15/18 17:08 Total Creatine Kinase 1444 U/L (55-170) H 02/17/18 05:45 Troponin I 0.1590 ng/mL (0.00-0.120) H* 02/15/18 17:08 NT-Pro-B Natriuret Pep 03245 pg/ml (0-450) H 02/16/18 06:12 Total Protein 7.4 G/DL (6.3-8.2) 02/16/18 06:12 Albumin 2.8 g/dL (3.5-5.0) L D 02/16/18 06:12 Globulin 4.6 gm/dL (2.2-3.9) H 02/16/18 06:12 Albumin/Globulin Ratio 0.6 (1.0-2.1) L 02/16/18 06:12 Vitamin B12 256 pg/mL (239-931) 02/15/18 06:19 Folate 13.7 ng/mL 02/15/18 06:19 Procalcitonin 0.82 NG/ML (0.19-0.49) H 02/15/18 10:06 Venous Blood Potassium 3.9 mmol/L (3.6-5.2) 02/14/18 18:50 Urine Opiates Screen Negative (NEGATIVE) 02/14/18 14:51 Urine Methadone Screen Negative (NEGATIVE) 02/14/18 14:51 Ur Barbiturates Screen Negative (NEGATIVE) 02/14/18 14:51 Ur Phencyclidine Scrn Negative (NEGATIVE) 02/14/18 14:51 Ur Amphetamines Screen Negative (NEGATIVE) 02/14/18 14:51 U Benzodiazepines Scrn Negative (NEGATIVE) 02/14/18 14:51 U Oth Cocaine Metabols Positive (NEGATIVE) H 02/14/18 14:51 U Cannabinoids Screen Negative (NEGATIVE) 02/14/18 14:51 Alcohol, Quantitative < 10 mg/dl (0-10) 02/14/18 15:30 HIV-1 Ab Rapid Screen Ab/ag reactive (NON REAC) H 02/15/18 14:43 Influenza Typ A,B (EIA) Negative for flu a/b (NEGATIVE) 02/14/18 19:00 - Hospital Course Hospital Course: 47 y/o male patient was seen and evaluated at bedside this morning. Patient was resting comfortably, and states he would like to sign out against medical advice as he has work. Patient reports he feels much better, and patient denies any fever, chills, headaches, chest pain, shortness of breath of abdominal pain. Patient was being evaluated by physical therapy, and as per PT, patient baseline unsteady. Patient poor historian, however patient oriented x 3 at the time of evaluation this AM. Patient is aware of HIV status, pending final confirmatory tests, HIV-1 Ab rapid Screen Ab/Ag reactive H. Patient signed out AMA. (1) + HIV screen -Pending confirmatory test, viral load, and CD4 count -Patient was advised to meet with director of social media marketing before discharge, however, patient signed out AMA (2) Elevated troponin (Acute) -Likely due to rhabomyolysis and cocaine abuse; unlikely due to TN as per cardio -Continue Aspirin 325 PO QD -Continue Plavix 75 mg PO QD -Continue Losartan 100mg PO QD -Continue to hold statins due to rhabdomyolysis -Continue to hold beta blockers due to + cocaine use -Cardio consulted & discussed with Dr Do Kearney who requested ECHO for further evaluation and treatment plan -Patient scheduled for ECHO today 02/17/18, however patient signed out AMA (3) Cocaine abuse -Urine tox positive for cocaine (4) Pneumonia (Acute) -Dr. Navarro recommendations have been appreciated -Dr. Raman recommendations have been appreciated -CXR showed Interstitial infiltrates/Alveolar infiltrates which could be bacterial pneumonia or possibly due to cocaine inhalation -Continue Bactrim 1 tab PO Q8 until CD4 returns, and if >200 will discontinue as per Dr. Raman -Pending Mycoplasma & Legionella results -Pending repeat blood cultures (5) Rhabdomyolysis (Acute) -CPK trending down -Plan was to continue hydration, but patient signed out AMA (6) Fall (Acute) -Hip/pelvic, wrist, & shoulder x-rays performed on 02/14/2018 were negative for fracture -CT of head performed on 02/14/2018 negative for acute bleed. -CT of orbit performed on 02/14/2018 was negative for acute fracture -Patient evaluated by Physical therapy for unsteady gait (7) Bacteremia (Acute) -Dr. Raman recommendations have been appreciated -Blood culture + for Gram neg rods, patient signed out AMA -Urine Culture- final, no growth (8) Iron Def Anemia, chronic -Continue Ferrous sulfate 325 PO QD (9) B12 Def - Continue cyanocobalamine 1000mcg IM QD - Date & Time of H&P Date of H&P: 02/17/18 Time of H&P: 12:32 Discharge Exam - Head Exam Head Exam: ATRAUMATIC, NORMOCEPHALIC - Eye Exam Eye Exam: Normal appearance, PERRL - ENT Exam ENT Exam: Mucous Membranes Moist - Neck Exam Neck exam: Full Rom - Respiratory Exam Respiratory Exam: Clear to PA & Lateral, NORMAL BREATHING PATTERN. absent: Rales, Rhonchi, Wheezes, Stridor - Cardiovascular Exam Cardiovascular Exam: REGULAR RHYTHM, +S1, +S2 - GI/Abdominal Exam GI & Abdominal Exam: Normal Bowel Sounds, Soft. absent: Distended, Firm, Guarding - Back Exam Back exam: absent: CVA tenderness (L), CVA tenderness (R) - Neurological Exam Neurological exam: Alert, Oriented x3 Additional comments: Patient was alert, awake, and oriented to time, place and person - Psychiatric Exam Psychiatric exam: Normal Affect, Normal Mood - Skin Skin Exam: Normal Color Discharge Plan - Follow Up Plan Condition: GUARDED Disposition: AGAINST MEDICAL ADVICE Patient education suggested?: Yes Additional Instructions: Patient signed out AMA Referrals: FAMILY PROVIDER,NO [Primary Care Provider] - <Leonela Sosa Deandra - Last Filed: 02/17/18 16:21> Provider - Provider Date of Admission: 02/14/18 20:31 Attending physician: Ismael Garrett Primary care physician: NO FAMILY PROVIDER Diagnosis - Discharge Diagnosis (1) Elevated troponin Status: Acute (2) Cocaine abuse Status: Acute (3) Pneumonia Status: Acute Priority: High (4) Rhabdomyolysis Status: Acute Priority: High (5) Fall Status: Acute Hospital Course - Lab Results Lab Results: Micro Results 02/14/18 19:00 Blood Blood Culture - Preliminary Salmonella Group B 02/14/18 19:00 Blood Gram Stain - Final 02/16/18 07:12 Blood Blood Culture - Preliminary NO GROWTH AFTER 24 HOURS 02/16/18 07:02 Blood Blood Culture - Preliminary NO GROWTH AFTER 24 HOURS 02/14/18 19:20 Urine Urine Culture - Final No Growth (<1,000 CFU/ML) Most Recent Lab Values WBC 3.3 K/uL (4.8-10.8) L 02/17/18 05:45 RBC 3.82 Mil/uL (4.40-5.90) L 02/17/18 05:45 Hgb 10.2 g/dL (12.0-18.0) L 02/17/18 05:45 Hct 32.1 % (35.0-51.0) L 02/17/18 05:45 MCV 84.0 fl (80.0-94.0) 02/17/18 05:45 MCH 26.7 pg (27.0-31.0) L 02/17/18 05:45 MCHC 31.8 g/dL (33.0-37.0) L 02/17/18 05:45 RDW 16.3 % (11.5-14.5) H 02/17/18 05:45 Plt Count 117 K/uL (130-400) L 02/17/18 05:45 MPV 9.0 fl (7.2-11.7) 02/17/18 05:45 Neut % (Auto) 50.8 % (50.0-75.0) 02/17/18 05:45 Lymph % (Auto) 38.5 % (20.0-40.0) 02/17/18 05:45 [place] % (Auto) 10.1 % (0.0-10.0) H 02/17/18 05:45 Eos % (Auto) 0.0 % (0.0-4.0) 02/17/18 05:45 Baso % (Auto) 0.6 % (0.0-2.0) 02/17/18 05:45 Neut # (Auto) 1.7 K/uL (1.8-7.0) L 02/17/18 05:45 Lymph # (Auto) 1.3 K/uL (1.0-4.3) 02/17/18 05:45 [place] # (Auto) 0.3 K/uL (0.0-0.8) 02/17/18 05:45 Eos # (Auto) 0.0 K/uL (0.0-0.7) 02/17/18 05:45 Baso # (Auto) 0.0 K/uL (0.0-0.2) 02/17/18 05:45 pCO2 31 mm/Hg (35-45) L 02/15/18 18:44 pO2 89 mm/Hg (80-100) 02/15/18 18:44 HCO3 23.4 mmol/L (21-28) 02/15/18 18:44 ABG pH 7.45 (7.35-7.45) 02/15/18 18:44 ABG Total CO2 22.5 mmol/L (22-28) 02/15/18 18:44 ABG O2 Saturation 99.2 % (95-98) H 02/15/18 18:44 ABG O2 Content 13.4 ML/dL (15-23) L 02/15/18 18:44 ABG Base Excess -1.9 mmol/L (-2.0-3.0) 02/15/18 18:44 ABG Hemoglobin 9.8 g/dL (11.7-17.4) L 02/15/18 18:44 ABG Carboxyhemoglobin 1.7 % (0.5-1.5) H 02/15/18 18:44 POC ABG HHb (Measured) 0.8 % (0.0-5.0) 02/15/18 18:44 ABG Methemoglobin 1.5 % (0.0-3.0) 02/15/18 18:44 ABG O2 Capacity 13.5 mL/dL (16-24) L 02/15/18 18:44 Ricci Test Yes 02/15/18 18:44 VBG pH 7.47 (7.32-7.43) H 02/14/18 18:50 VBG pCO2 34 mmHg (40-60) L 02/14/18 18:50 VBG HCO3 25.6 mmol/L 02/14/18 18:50 VBG Total CO2 25.7 mmol/L (22-28) 02/14/18 18:50 VBG O2 Sat (Calc) 80.6 % (40-65) H 02/14/18 18:50 VBG Base Excess 1.5 mmol/L (0.0-2.0) 02/14/18 18:50 VBG Potassium 3.9 mmol/L (3.6-5.2) 02/14/18 18:50 A-a O2 Difference 22.0 mm/Hg 02/15/18 18:44 Hgb O2 Saturation 96.0 % (95.0-98.0) 02/15/18 18:44 Sodium 138.0 mmol/L (132-148) 02/14/18 18:50 Chloride 107.0 mmol/L (98-107) 02/14/18 18:50 Glucose 101 mg/dL (75-110) 02/14/18 18:50 Lactate 0.7 mmol/L (0.7-2.1) 02/14/18 18:50 FiO2 21.0 % 02/15/18 18:44 Sodium 141 mmol/l (132-148) 02/17/18 05:45 Potassium 4.0 MMOL/L (3.6-5.0) 02/17/18 05:45 Chloride 111 mmol/L (98-107) H 02/17/18 05:45 Carbon Dioxide 23 mmol/L (22-30) 02/17/18 05:45 Anion Gap 11 (10-20) 02/17/18 05:45 BUN 15 mg/dl (9-20) 02/17/18 05:45 Creatinine 0.9 mg/dl (0.8-1.5) 02/17/18 05:45 Est GFR ( Amer) > 60 02/17/18 05:45 Est GFR (Non-Af Amer) > 60 02/17/18 05:45 POC Glucose (mg/dL) 113 mg/dL (65-110) H 02/15/18 01:50 Random Glucose 96 mg/dL (75-110) 02/17/18 05:45 Calcium 7.8 mg/dL (8.4-10.2) L 02/17/18 05:45 Phosphorus 3.1 mg/dl (2.5-4.5) 02/16/18 06:12 Magnesium 2.4 MG/DL (1.6-2.3) H 02/16/18 06:12 Iron < 10 ug/dL (49-181) L 02/15/18 06:19 TIBC 210 ug/dL (250-450) L 02/15/18 06:19 % Saturation 4.8 % (20-55) L 02/15/18 06:19 Total Bilirubin 0.2 mg/dl (0.2-1.3) 02/16/18 06:12 AST 113 U/L (17-59) H 02/16/18 06:12 ALT 46 U/L (21-72) 02/16/18 06:12 Alkaline Phosphatase 76 U/L (38-126) 02/16/18 06:12 Lactate Dehydrogenase 696 U/L (313-618) H 02/15/18 17:08 Total Creatine Kinase 1444 U/L (55-170) H 02/17/18 05:45 Troponin I 0.1590 ng/mL (0.00-0.120) H* 02/15/18 17:08 NT-Pro-B Natriuret Pep 84863 pg/ml (0-450) H 02/16/18 06:12 Total Protein 7.4 G/DL (6.3-8.2) 02/16/18 06:12 Albumin 2.8 g/dL (3.5-5.0) L D 02/16/18 06:12 Globulin 4.6 gm/dL (2.2-3.9) H 02/16/18 06:12 Albumin/Globulin Ratio 0.6 (1.0-2.1) L 02/16/18 06:12 Vitamin B12 256 pg/mL (239-931) 02/15/18 06:19 Folate 13.7 ng/mL 02/15/18 06:19 Procalcitonin 0.82 NG/ML (0.19-0.49) H 02/15/18 10:06 Venous Blood Potassium 3.9 mmol/L (3.6-5.2) 02/14/18 18:50 Urine Opiates Screen Negative (NEGATIVE) 02/14/18 14:51 Urine Methadone Screen Negative (NEGATIVE) 02/14/18 14:51 Ur Barbiturates Screen Negative (NEGATIVE) 02/14/18 14:51 Ur Phencyclidine Scrn Negative (NEGATIVE) 02/14/18 14:51 Ur Amphetamines Screen Negative (NEGATIVE) 02/14/18 14:51 U Benzodiazepines Scrn Negative (NEGATIVE) 02/14/18 14:51 U Oth Cocaine Metabols Positive (NEGATIVE) H 02/14/18 14:51 U Cannabinoids Screen Negative (NEGATIVE) 02/14/18 14:51 Alcohol, Quantitative < 10 mg/dl (0-10) 02/14/18 15:30 HIV-1 Ab Rapid Screen Ab/ag reactive (NON REAC) H 02/15/18 14:43 Influenza Typ A,B (EIA) Negative for flu a/b (NEGATIVE) 02/14/18 19:00 Attending/Attestation - Attestation I have personally seen and examined this patient.: Yes I have fully participated in the care of the patient.: Yes I have reviewed all pertinent clinical information, including history, physical exam and plan: Yes Notes (Text): Pt signed AMA despite explanation of benefits of staying and risk of leaving against medical advice including poss . Pt is alert, oriented x 3. He was seen by Physical therapy and had stable gait. rice field worker also met patient and was referred to [facility] ( Jimenez Chaparro) Pt refused to take prescription for antibiotics and left.
[2018-02-18 18:57] LABS: % CD4 (T HELPER CELL) 6 Percent (30-61); % CD8 (SUPPRESSOR T CELL) 85 Percent (12-42); ABSOLUTE CD4 CELLS 51 Cells/mcL (490-1740); ABSOLUTE CD8 CELLS 733 Cells/mcL (180-1170); ABSOLUTE LYMPHOCYTES 867 Cells/mcL (850-3900); HELPER/SUPPRESSOR RATIO 0.07 Ratio (0.86-5.00)
--- NOTE | 2018-03-03 17:46 | PQF ---
PROVIDER RESPONSE TEXT: AIDS , CD4 Count =51 REVIEWER QUERY TEXT: Clinical Validity Please respond and also state in your next progress note whether pt's positive HIV screen: -- Condition exists and also please provide clinical indicators to support the diagnosis -- Condition does not exist and also please provide amended documentation in the medical record to cl aydin -- Unable to provide additional clarity regarding the diagnosis -- Other, please specify The patient's Clinical Indicators include: Discharge Summary "positive HIV screen, pending confirmatory test, viral load and CD4 count." Query created by: Mitzi Jara on 02/18/2018 12:01 PM Electronically signed by: Leonela Sosa MD 03/03/2018 5:43 PM
== END 2018-02-17 12:10 | disposition left against medical advice (07) | DRG 975 ==
LOC: H.ER 13:33 → H.ERHOLD 20:31 → H.TEL 02-15 04:38
PROVIDERS: ADMIT Internal Medicine; ATTEND Internal Medicine
PROC: 0HQ1XZZ Repair Face Skin, External Approach (ICD-10-PCS; principal; 2018-02-14)
DX: B20 Human immunodeficiency virus [HIV] disease (principal); J15.9 Unspecified bacterial pneumonia; M62.82 Rhabdomyolysis; R78.81 Bacteremia; I10 Essential (primary) hypertension; Z59.0 Homelessness; S40.812A Abrasion of left upper arm, initial encounter; M25.551 Pain in right hip; J32.9 Chronic sinusitis, unspecified; S01.81XA Laceration without foreign body of other part of head, initial encounter; W19.XXXA Unspecified fall, initial encounter; D50.9 Iron deficiency anemia, unspecified; E53.8 Deficiency of other specified B group vitamins; F14.10 Cocaine abuse, uncomplicated; R56.9 Unspecified convulsions; I45.81 Long QT syndrome

== ENCOUNTER 2018-04-10 02:23 | Emergency (ER) | payer BC, MEDICAID ==
[2018-04-10 02:23] VITALS: BMI 28.5
[2018-04-10 02:53] VITALS: O2SAT 98
[2018-04-10 03:49] LABS: BASO % 0.6 % (0.0-2.0); EOS % 0.5 % (0.0-4.0); HEMOGLOBIN 8.6 g/dL (12.0-18.0); LYMPH # 0.7 K/uL (1.0-4.3); LYMPH % 27.9 % (20.0-40.0); MEAN CELL VOLUME 80.2 fl (80.0-94.0); MEAN CORPUSCULAR HEMOGLOBIN 24.9 pg (27.0-31.0); MEAN PLATELET VOLUME 8.1 fl (7.2-11.7); MONO # 0.3 K/uL (0.0-0.8); MONO % 10.7 % (0.0-10.0); NEUT # 1.5 K/uL (1.8-7.0); NEUT % 60.3 % (50.0-75.0); NRBC % 0.2 % (0.0-0.0); RBC 3.46 Mil/uL (4.40-5.90); RED CELL DISTRIBUTION WIDTH 17.2 % (11.5-14.5); WHITE BLOOD COUNT 2.5 K/uL (4.8-10.8)
[2018-04-10 03:54] LABS: ALB/GLOB RATIO 0.7 (1.0-2.1); ALBUMIN 3.5 g/dL (3.5-5.0); ALT/SGPT 49 U/L (21-72); AST/SGOT 71 U/L (17-59); BLOOD UREA NITROGEN 22 mg/dl (9-20); CALCIUM 8.4 mg/dL (8.4-10.2); GFR NON-AFRICAN AMERICAN > 60
[2018-04-10 04:09] LABS: B-TYPE NATRIURETIC PEPTIDE 4720 pg/ml (0-450)
--- NOTE | 2018-04-10 04:52 | ED PDOC ---
Lower Extremity Pain/Injury Time Seen by Provider: 04/10/18 02:47 Chief Complaint (Nursing): Lower Extremity Problem/Injury History Per: Patient Additional Complaint(s): Pt. states for the past 3 days he's had atraumatic L leg pain. Reports having chronic swelling to both legs and swelling has not changed. Has been taking his Lasix 20mg as prescribed. Denies chest pain, cough, SOB, fever, hemoptysis. Past Medical History Reviewed: Historical Data, Nursing Documentation, Vital Signs Vital Signs: Last Vital Signs Temp 98.8 F 04/10/18 02:32 Pulse 81 04/10/18 02:32 Resp 17 04/10/18 02:32 BP 152/82 H 04/10/18 02:32 Pulse Ox 98 04/10/18 02:32 - Medical History PMH: Fractures (left ankle fx twice, r great toe fx, r 5th toe fx), HIV, HTN, Seizures Denies: Depression, Chronic Kidney Disease - Family History Family History: States: No Known Family Hx - Home Medications Home Medications: Ambulatory Orders Medication Instructions Recorded Furosemide [Lasix] 20 mg PO DAILY #14 tab 04/08/18 Naproxen Sodium [Aleve] 220 mg PO Q6 PRN 04/09/18 - Allergies Allergies/Adverse Reactions: Allergies Allergy/AdvReac Type Severity Reaction Status Date / Time No Known Allergies Allergy Verified 04/08/18 04:01 Wells Criteria for PE - Wells Criteria for Pulmonary Embolism Clinical Signs and Symptoms of DVT: No P.E is #1 Diagnosis, or Equally Likely: No Heart Rate >100: No Immobilization at least 3 days;Surgery previous 4 weeks: No Previous, objectively diagnosed PE or DVT: No Hemoptysis: No Malignancy w/treatment within 6 months, or palliative: No Total Score: 0 Review of Systems ROS Statement: Except As Marked, All Systems Reviewed And Found Negative Cardiovascular: Negative for: Chest Pain Respiratory: Negative for: Shortness of Breath, SOB with Exertion Physical Exam - Physical Exam Appears: Positive for: Well, Non-toxic, No Acute Distress Skin: Positive for: Normal Color, Warm. Negative for: Rash Eye Exam: Positive for: Normal appearance Cardiovascular/Chest: Positive for: Regular Rate, Rhythm Respiratory: Positive for: Normal Breath Sounds. Negative for: Wheezing, Respiratory Distress Gastrointestinal/Abdominal: Positive for: Normal Exam, Soft. Negative for: Tenderness, Distended Extremity: Positive for: Other (b/l leg non-pitting edema). Negative for: Calf Tenderness (b/l without warmth or erythema) Neurologic/Psych: Positive for: Alert, Oriented (x3) - Laboratory Results Result Diagrams: 04/10/18 03:37 04/10/18 03:37 - ECG O2 Sat by Pulse Oximetry: 98 - Progress ED Course And Treament: Labs, duplex b/l lower extremity vein ordered. BNP elevated from previous visit. Duplex b/l lower ext vein: L superficial thrombosis of the saphenous vein. Case d/w Dr. Trinidad who recommends giving additional Lasix PO and out patient f/u. Results d/w patient who agrees with plan and care. Disposition - Clinical Impression Clinical Impression: Leg pain - Patient ED Disposition Is Patient to be Admitted: No - Disposition Referrals: [facility] [Outside] Disposition: Routine/Home Disposition Time: 05:00 Condition: STABLE Additional Instructions: ASHLEY MCLAUGHLIN, thank you for letting us take care of you today. Your provider was Rajesh Trinidad MD and you were treated for LEG PAIN. The emergency medical care you received today was directed at your acute symptoms. If you were prescribed any medication, please fill it and take as directed. It may take several days for your symptoms to resolve. Return to the Emergency Department if your symptoms worsen, do not improve, or if you have any other problems. Please contact your doctor or call one of the physicians/clinics you have been referred to that are listed on the Patient Visit Information form that is included in your discharge packet. Bring any paperwork you were given at discharge with you along with any medications you are taking to your follow up visit. Our treatment cannot replace ongoing medical care by a primary care provider outside of the emergency department. Thank you for allowing the [facility] team to be part of your care today. If you had an X-Ray or CT scan: A Radiologist will review the ED reading if any change in treatment is needed we will contact you. If you had a blood, urine, or wound culture: It will take several days for the results, if any change in treatment is needed we will contact you. If you had an STI test: It will take 48 hours for the results. Please call after 1 week if you have not heard back. Instructions: Dependent Edema (DC) Forms: [facility] (Indonesian)
[2018-04-10 05:27] VITALS: BP 130/90
[2018-04-10 05:38] VITALS: PULSE 99; RESP 18; TEMP 98.3
--- NOTE | 2018-04-10 10:39 | US ---
Date of service: 04/10/2018 PROCEDURE: Bilateral lower extremity venous duplex Doppler. HISTORY: leg swelling COMPARISON: None available. TECHNIQUE: Bilateral common femoral, superficial femoral, popliteal and posterior tibial veins were evaluated. Flow was assessed with color Doppler, compressibility, assessment of phasic flow and augmentation response. FINDINGS: COMMON FEMORAL VEIN: Right CFV: Unremarkable. Left CFV: Unremarkable. SUPERFICIAL FEMORAL VEIN: Right SFV: Unremarkable. Left SFV: Unremarkable. POPLITEAL VEIN: Right Popliteal: Unremarkable. Left Popliteal: Unremarkable. POSTERIOR TIBIAL VEIN: Right PTV: Unremarkable. Left PTV: Unremarkable. OTHER FINDINGS: Superficial venous thrombosis is seen in the mid and distal left greater saphenous vein. This thrombus in the saphenous vein does not extend proximally to the common femoral vein junction. IMPRESSION: No evidence of deep venous thrombosis. Superficial venous thrombosis in the left greater saphenous vein. The preliminary findings for this examination were reported by [facility] Radiology at 5:03 a.m. on 04/10/2018. There is concurrence of this report with the preliminary findings.
== END 2018-04-10 05:30 | disposition home or self-care (01) ==
LOC: H.ER 02:23
DX: M79.606 Pain in leg, unspecified (principal)

== ENCOUNTER 2018-04-14 06:37 | Emergency (ER) | payer MEDICAID ==
[2018-04-14 06:47] VITALS: BMI 25.0
[2018-04-14 06:50] VITALS: RESP 18
--- NOTE | 2018-04-14 07:59 | ED PDOC ---
HPI: Back Time Seen by Provider: 04/14/18 07:20 Chief Complaint (Nursing): Back Pain Chief Complaint (Provider): Back Pain History Per: Patient History/Exam Limitations: no limitations Onset/Duration Of Symptoms: Days Current Symptoms Are (Timing): Still Present Quality Of Discomfort: "Pain" Additional Complaint(s): 47 year old male presents to the ER for an evaluation of lower back pain onset last night. Patient reports when he sat on the chair, he fell backwards and his back started to hurt afterwards. no head trauma or neck trauma. no loc. He states he has difficulty getting out of bed or getting up. Also reports he has neuropathy on the left leg. Denies chest pain, dysuria, incontinence, frequency or cough. PMD: no family provider Past Medical History Reviewed: Historical Data, Nursing Documentation, Vital Signs Vital Signs: Last Vital Signs Temp 98.5 F 04/14/18 06:47 Pulse 111 H 04/14/18 06:47 Resp 18 04/14/18 06:47 BP 141/85 04/14/18 06:47 Pulse Ox 97 04/14/18 06:47 - Medical History PMH: Fractures (left ankle fx twice, r great toe fx, r 5th toe fx), HIV, HTN, Seizures Denies: Depression, Chronic Kidney Disease - Surgical History Surgical History: No Surg Hx - Family History Family History: States: Unknown Family Hx - Social History Current smoker - smoking cessation education provided: No Alcohol: Social Drugs: Cannabis, Cocaine - Home Medications Home Medications: Ambulatory Orders Medication Instructions Recorded Furosemide [Lasix] 20 mg PO DAILY #14 tab 04/08/18 Naproxen Sodium [Aleve] 220 mg PO Q6 PRN 04/09/18 - Allergies Allergies/Adverse Reactions: Allergies Allergy/AdvReac Type Severity Reaction Status Date / Time No Known Allergies Allergy Verified 04/14/18 06:46 Review of Systems ROS Statement: Except As Marked, All Systems Reviewed And Found Negative Constitutional: Negative for: Fever Cardiovascular: Negative for: Chest Pain Respiratory: Negative for: Cough Gastrointestinal: Negative for: Abdominal Pain Genitourinary Male: Negative for: Dysuria, Frequency, Incontinence Musculoskeletal: Positive for: Back Pain Physical Exam - Reviewed Nursing Documentation Reviewed: Yes Vital Signs Reviewed: Yes - Physical Exam Appears: Positive for: Well, Non-toxic, No Acute Distress Head Exam: Positive for: ATRAUMATIC, NORMAL INSPECTION, NORMOCEPHALIC Skin: Positive for: Normal Color, Warm, Dry Eye Exam: Positive for: EOMI, Normal appearance, PERRL ENT: Positive for: Normal ENT Inspection Neck: Positive for: Normal, Painless ROM Cardiovascular/Chest: Positive for: Regular Rate, Rhythm. Negative for: Murmur Respiratory: Positive for: Normal Breath Sounds. Negative for: Decreased Breath Sounds, Wheezing, Respiratory Distress Gastrointestinal/Abdominal: Positive for: Normal Exam, Soft. Negative for: Tenderness Back: Positive for: Normal Inspection. Negative for: L CVA Tenderness, R CVA Tenderness Extremity: Positive for: Normal ROM. Negative for: Tenderness, Pedal Edema, Deformity Neurologic/Psych: Positive for: Alert, Oriented (x3). Negative for: Motor/Sensory Deficits - ECG O2 Sat by Pulse Oximetry: 97 (RA) Pulse Ox Interpretation: Normal Medical Decision Making Medical Decision Making: Time: 743 Initial Plan: back pain Ibuprofen 600mg LS Spine AP/LAT [RAD] Reevaluation The x-ray presents no fracture or dislocation on providers view of the x-ray. Patient is sleeping on the bed while in ER. appears to be in no discomfort. stable for dc and outpt follow up repeat pulse imporved to 103 Clinical Impression: Back Pain Upon provider reevaluation patient is feeling better, is medically stable, and requires no further treatment in the ED at this time. Patient will be discharged home. Counseling was provided and all questions were answered regarding diagnosis and need for follow up with clinic. There is agreement to discharge plan. Return if symptoms persist or worsen. ----- Scribe Attestation: Documented by Kamryn Bedoya, acting as a scribe for Diony Olivarez MD. Provider Scribe Attestation: All medical record entries made by the Scribe were at my direction and personally dictated by me. I have reviewed the chart and agree that the record accurately reflects my personal performance of the history, physical exam, medical decision making, and the department course for this patient. I have also personally directed, reviewed, and agree with the discharge instructions and disposition. Disposition - Clinical Impression Clinical Impression: Back pain - Patient ED Disposition Is Patient to be Admitted: No Counseled Patient/Family Regarding: Studies Performed, Diagnosis, Need For Followup - Disposition Disposition: Routine/Home Disposition Time: 08:40 Condition: IMPROVED Additional Instructions: follow up with the clinic in 2 days for reevaluation take motrin for pain return to the ED with any worsening or concerning symptoms Instructions: Low Back Pain (DC) Forms: [employer] (Tajik)
[2018-04-14 08:48] VITALS: BP 126/79; PULSE 104; TEMP 98.6
[2018-04-14 08:54] VITALS: O2SAT 97
--- NOTE | 2018-04-14 12:25 | RAD ---
Date of service: 04/14/2018 PROCEDURE: Radiographs of the Lumbar Spine. HISTORY: lowe rback pain COMPARISON: No prior. FINDINGS: BONES: Normal alignment. No listhesis. No fracture. DISC SPACES: Unremarkable. OTHER FINDINGS: Non marginal proliferative changes L2-3. IMPRESSION: No acute findings related to/ accounting for the clinical presentation. Additional benign and/or incidental findings described above. Concordant results with the preliminary interpretation rendered by the emergency department physician procedure.
== END 2018-04-14 09:07 | disposition home or self-care (01) ==
LOC: H.ER 06:37
DX: M54.9 Dorsalgia, unspecified (principal); I10 Essential (primary) hypertension

== ENCOUNTER 2018-04-19 20:10 | Emergency (ER) | payer MEDICAID ==
[2018-04-19 20:10] VITALS: BMI 25.0
[2018-04-19 20:16] VITALS: TEMP 98.2; O2SAT 98
--- NOTE | 2018-04-19 21:06 | ED PDOC ---
Lower Extremity Pain/Injury Time Seen by Provider: 04/19/18 20:21 Chief Complaint (Nursing): Lower Extremity Problem/Injury Chief Complaint (Provider): leg swelling History Per: Patient History/Exam Limitations: no limitations Onset/Duration Of Symptoms: Days (2 days) Current Symptoms Are (Timing): Still Present Additional Complaint(s): 47 y/o male presents for evaluation of leg swelling x 2 weeks, worse x 2 days. Patient states he was prescribed Lasix in ED for swelling which has been helping with swelling, but ran out 2 days ago and now reports swelling to be worsening. Patient states he is always on his feet. Denies fever, headache, dizziness, chest pain, shortness of breath, palpitations, leg/calf pain. Past Medical History Reviewed: Historical Data, Nursing Documentation, Vital Signs Vital Signs: Last Vital Signs Temp 98.2 F 04/19/18 20:14 Pulse 63 04/19/18 20:14 Resp 18 04/19/18 20:14 BP 136/98 H 04/19/18 20:14 Pulse Ox 98 04/19/18 20:14 - Medical History PMH: Fractures (left ankle fx twice, r great toe fx, r 5th toe fx), HIV, HTN, Seizures Denies: Depression, Chronic Kidney Disease - Surgical History Surgical History: No Surg Hx - Family History Family History: States: Unknown Family Hx - Home Medications Home Medications: Ambulatory Orders Medication Instructions Recorded Furosemide [Lasix] 20 mg PO DAILY #14 tab 04/08/18 Naproxen Sodium [Aleve] 220 mg PO Q6 PRN 04/09/18 Furosemide [Lasix] 20 mg PO DAILY #7 tablet 04/19/18 - Allergies Allergies/Adverse Reactions: Allergies Allergy/AdvReac Type Severity Reaction Status Date / Time No Known Allergies Allergy Verified 04/14/18 06:46 Review of Systems ROS Statement: Except As Marked, All Systems Reviewed And Found Negative Musculoskeletal: Positive for: Leg Pain (leg swelloing) Physical Exam - Reviewed Nursing Documentation Reviewed: Yes Vital Signs Reviewed: Yes - Physical Exam Appears: Positive for: Well, Non-toxic, No Acute Distress Head Exam: Positive for: ATRAUMATIC, NORMAL INSPECTION, NORMOCEPHALIC Skin: Positive for: Normal Color Eye Exam: Positive for: Normal appearance ENT: Positive for: Normal ENT Inspection Cardiovascular/Chest: Positive for: Regular Rate, Rhythm Respiratory: Positive for: Normal Breath Sounds Gastrointestinal/Abdominal: Positive for: Normal Exam Extremity: Positive for: Swelling (2+ lower extremity edema bilaterally) Neurologic/Psych: Positive for: Alert, Oriented (x3) - ECG O2 Sat by Pulse Oximetry: 98 - Progress ED Course And Treament: Patient had full workup 04/09 including labs, u/s for same Denies chest pain, shortness of breath. Vitals stable. Resting comfortably Rx Lasix provided with instructions given to follow up with primary doctor within 2-3 days Advised to elevate legs at rest. Wear compression stockings Return to ED for worsening/concerning symptoms Disposition - Clinical Impression Clinical Impression: Lower extremity edema - Patient ED Disposition Is Patient to be Admitted: No Counseled Patient/Family Regarding: Diagnosis, Need For Followup, Rx Given - Disposition Referrals: [facility] [Outside] Disposition: Routine/Home Disposition Time: 21:20 Condition: IMPROVED Additional Instructions: Follow up with your primary doctor within 2-3 days Elevate legs at rest Prescriptions: Furosemide [Lasix] 20 mg PO DAILY #7 tablet Instructions: Dependent Edema (DC)
[2018-04-19 21:51] VITALS: BP 137/95
[2018-04-19 22:47] VITALS: PULSE 66; RESP 16
== END 2018-04-19 22:46 | disposition home or self-care (01) ==
LOC: H.ER 20:10
DX: I10 Essential (primary) hypertension (principal); Z79.899 Other long term (current) drug therapy

== ENCOUNTER 2018-05-09 03:46 | Emergency (ER) | payer MEDICAID ==
[2018-05-09 03:46] VITALS: BMI 25.0
[2018-05-09 04:04] VITALS: BP 144/90; PULSE 112; RESP 18; TEMP 98.4; O2SAT 98
--- NOTE | 2018-05-09 05:08 | ED PDOC ---
Syncope/Near Syncope/Dizziness Time Seen by Provider: 05/09/18 03:59 Chief Complaint (Nursing): Medical Clearance Chief Complaint (Provider): Multiple Syncopal Episodes History Per: Patient History/Exam Limitations: no limitations Onset/Duration Of Symptoms: Intermittent Episodes Current Symptoms Are (Timing): Intermittent Episodes Additional Complaint(s): 47 year old homeless male presents to the ED for evaluation of multiple syncopal episodes earlier today. Patient reports he was walking in a park when he passed out and hit the ground, without any head injury. Denies chest pain, shortness of breath, headache, and vomiting. He does additionally report a cough for the past two weeks, but denies any difficulty breathing. As per patient, he has passed out multiple times in the past and seen by a doctor at the time. He has no active complaints right now, but states he just wants to be checked out. PMD: none provided Past Medical History Reviewed: Historical Data, Nursing Documentation, Vital Signs Vital Signs: Last Vital Signs Temp 98.4 F 05/09/18 03:55 Pulse 112 H 05/09/18 03:55 Resp 18 05/09/18 03:55 BP 144/90 05/09/18 03:55 Pulse Ox 98 05/09/18 03:55 - Medical History PMH: CAD, Fractures (left ankle fx twice, r great toe fx, r 5th toe fx), HIV, HTN, Seizures Denies: Depression, Chronic Kidney Disease - Surgical History Surgical History: No Surg Hx - Family History Family History: States: Unknown Family Hx - Living Arrangements Living Arrangements: Other (homeless) - Social History Current smoker - smoking cessation education provided: No Alcohol: None Drugs: Denies - Home Medications Home Medications: Ambulatory Orders Medication Instructions Recorded Furosemide [Lasix] 20 mg PO DAILY #14 tab 04/08/18 Naproxen Sodium [Aleve] 220 mg PO Q6 PRN 04/09/18 Furosemide [Lasix] 20 mg PO DAILY #7 tablet 04/19/18 Azithromycin [Z-Keaton] 250 mg PO ASDIR #6 tab 05/09/18 - Allergies Allergies/Adverse Reactions: Allergies Allergy/AdvReac Type Severity Reaction Status Date / Time No Known Allergies Allergy Verified 04/14/18 06:46 Review of Systems ROS Statement: Except As Marked, All Systems Reviewed And Found Negative Cardiovascular: Negative for: Chest Pain Respiratory: Positive for: Cough. Negative for: Shortness of Breath Gastrointestinal: Negative for: Vomiting Neurological: Positive for: Other (multiple syncopal episodes). Negative for: Headache Physical Exam - Reviewed Nursing Documentation Reviewed: Yes Vital Signs Reviewed: Yes - Physical Exam Appears: Positive for: No Acute Distress Head Exam: Positive for: ATRAUMATIC, NORMOCEPHALIC Skin: Positive for: Normal Color, Warm Eye Exam: Positive for: Normal appearance, EOMI, PERRL Neck: Positive for: Normal, Painless ROM, Supple Cardiovascular/Chest: Positive for: Regular Rate, Rhythm Respiratory: Positive for: Normal Breath Sounds. Negative for: Respiratory Distress Gastrointestinal/Abdominal: Positive for: Normal Exam, Soft. Negative for: Tenderness Back: Positive for: Normal Inspection Extremity: Positive for: Normal ROM. Negative for: Tenderness, Swelling Neurologic/Psych: Positive for: Alert, Oriented (x3), Gait (steady) - ECG O2 Sat by Pulse Oximetry: 98 (RA) Pulse Ox Interpretation: Normal Medical Decision Making Medical Decision Making: Time: 442 Initial Impression: recurrent syncope, cough Initial Plan: --Accucheck --EKG --CXR Scribe Attestation: Documented by Angela Vazquez, acting as a scribe for Brayan Tatum MD. Provider Scribe Attestation: All medical record entries made by the Scribe were at my direction and personally dictated by me. I have reviewed the chart and agree that the record accurately reflects my personal performance of the history, physical exam, medical decision making, and the department course for this patient. I have also personally directed, reviewed, and agree with the discharge instructions and disposition. Disposition - Clinical Impression Clinical Impression: Bronchitis, Syncope - Patient ED Disposition Is Patient to be Admitted: No Doctor Will See Patient In The: Office Counseled Patient/Family Regarding: Studies Performed, Diagnosis, Need For Followup - Disposition Referrals: [facility] [Outside] Disposition: Routine/Home Disposition Time: 06:17 Condition: GOOD Additional Instructions: ASHLEY MCLAUGHLIN, thank you for letting us take care of you today. Your provider was Brayan Tatum MD and you were treated for KEEPS PASSING OUT. The emergency medical care you received today was directed at your acute symptoms. If you were prescribed any medication, please fill it and take as directed. It may take several days for your symptoms to resolve. Return to the Emergency Department if your symptoms worsen, do not improve, or if you have any other problems. Please contact your doctor or call one of the physicians/clinics you have been referred to that are listed on the Patient Visit Information form that is included in your discharge packet. Bring any paperwork you were given at discharge with you along with any medications you are taking to your follow up visit. Our treatment cannot replace ongoing medical care by a primary care provider outside of the emergency department. Thank you for allowing the [facility] team to be part of your care today. If you had an X-Ray or CT scan: A Radiologist will review the ED reading if any change in treatment is needed we will contact you. If you had a blood, urine, or wound culture: It will take several days for the results, if any change in treatment is needed we will contact you. If you had an STI test: It will take 48 hours for the results. Please call after 1 week if you have not heard back. Prescriptions: Azithromycin [Z-Keaton] 250 mg PO ASDIR #6 tab Instructions: Syncope (Fainting), Acute Bronchitis, Adult (DC)
--- NOTE | 2018-05-09 12:50 | RAD ---
Date of service: 05/09/2018 HISTORY: cough COMPARISON: No prior. TECHNIQUE: Chest PA and lateral FINDINGS: LUNGS: Persistent slight elevation right hemidiaphragm possibly due to eventration. Suspect mild right basilar atelectasis. PLEURA: No significant pleural effusion identified. No pneumothorax apparent. CARDIOVASCULAR: No aortic atherosclerotic calcification present. Cardiomegaly.. No pulmonary vascular congestion. OSSEOUS STRUCTURES: Mild multilevel degenerative spondylosis of the thoracic spine. Chronic anterior wedge deformities of several mid to lower thoracic segments. VISUALIZED UPPER ABDOMEN: Normal. OTHER FINDINGS: None. Significant IMPRESSION: Persistent elevation right hemidiaphragm possibly due to eventration with mild right basilar
--- NOTE | 2018-05-09 20:38 | CARD ---
APPROVED REPORT Date of service: 05/09/2018 EKG Measurement Heart [id number] <Conclusion> Sinus tachycardia Otherwise normal ECG
== END 2018-05-09 07:00 | disposition home or self-care (01) ==
LOC: H.ER 03:46
DX: R55 Syncope and collapse (principal); J40 Bronchitis, not specified as acute or chronic; I10 Essential (primary) hypertension; I25.10 Atherosclerotic heart disease of native coronary artery without angina pectoris

== ENCOUNTER 2018-05-10 01:25 | Emergency (ER) | payer MEDICAID ==
[2018-05-10 01:26] VITALS: BMI 25.0
[2018-05-10 01:37] VITALS: RESP 18; O2SAT 98
--- NOTE | 2018-05-10 03:17 | ED PDOC ---
HPI: General Adult Time Seen by Provider: 05/10/18 02:23 Chief Complaint (Nursing): Lower Extremity Problem/Injury Chief Complaint (Provider): tired History Per: Patient History/Exam Limitations: no limitations Additional Complaint(s): 47 y/o male ambulates to ED requesting place to rest for a while. Contrary to triage note, patient denies acute medical or psychiatric complaints. Past Medical History Reviewed: Historical Data, Nursing Documentation, Vital Signs Vital Signs: Last Vital Signs Temp 98.7 F 05/10/18 01:35 Pulse 110 H 05/10/18 01:35 Resp 18 05/10/18 01:35 BP 158/92 H 05/10/18 01:35 Pulse Ox 98 05/10/18 01:35 - Medical History PMH: CAD, Fractures (left ankle fx twice, r great toe fx, r 5th toe fx), HIV, HTN, Seizures Denies: Depression, Chronic Kidney Disease - Family History Family History: States: Unknown Family Hx - Home Medications Home Medications: Ambulatory Orders Medication Instructions Recorded Furosemide [Lasix] 20 mg PO DAILY #14 tab 04/08/18 Naproxen Sodium [Aleve] 220 mg PO Q6 PRN 04/09/18 Furosemide [Lasix] 20 mg PO DAILY #7 tablet 04/19/18 Azithromycin [Z-Keaton] 250 mg PO ASDIR #6 tab 05/09/18 - Allergies Allergies/Adverse Reactions: Allergies Allergy/AdvReac Type Severity Reaction Status Date / Time No Known Allergies Allergy Verified 04/14/18 06:46 Review of Systems ROS Statement: Except As Marked, All Systems Reviewed And Found Negative Physical Exam - Reviewed Nursing Documentation Reviewed: Yes Vital Signs Reviewed: Yes - Physical Exam Appears: Positive for: Well, Non-toxic, No Acute Distress (sleeping) Head Exam: Positive for: ATRAUMATIC, NORMAL INSPECTION, NORMOCEPHALIC Skin: Positive for: Normal Color Eye Exam: Positive for: Normal appearance ENT: Positive for: Normal ENT Inspection Cardiovascular/Chest: Positive for: Regular Rate, Rhythm Respiratory: Positive for: Normal Breath Sounds Gastrointestinal/Abdominal: Positive for: Normal Exam Back: Positive for: Normal Inspection Extremity: Positive for: Normal ROM. Negative for: Swelling Neurologic/Psych: Positive for: Alert, Oriented (x3) - ECG O2 Sat by Pulse Oximetry: 98 - Progress ED Course And Treament: Patient requires no further intervention in the ED and is stable for discharge at this time Disposition - Clinical Impression Clinical Impression: Malingering - Patient ED Disposition Is Patient to be Admitted: No Counseled Patient/Family Regarding: Diagnosis, Need For Followup - Disposition Disposition: Routine/Home Disposition Time: 05:41 Condition: IMPROVED Forms: [employer] ([place]an)
[2018-05-10 05:02] VITALS: BP 117/73; PULSE 103; TEMP 98.5
== END 2018-05-10 05:05 | disposition home or self-care (01) ==
LOC: H.ER 01:25
DX: Z76.5 Malingerer [conscious simulation] (principal); I10 Essential (primary) hypertension

== ENCOUNTER 2018-05-11 04:45 | Emergency (ER) | payer MEDICAID ==
[2018-05-11 04:46] VITALS: BMI 25.0
[2018-05-11 05:46] VITALS: RESP 18; O2SAT 100
--- NOTE | 2018-05-11 06:01 | ED PDOC ---
HPI: General Adult Time Seen by Provider: 05/11/18 05:59 Chief Complaint (Nursing): Cough, Cold, Congestion Chief Complaint (Provider): Cough History Per: Patient History/Exam Limitations: no limitations Recently: Seen In ED Additional Complaint(s): 47 year old homeless male presents to the ED for evaluation of a cough for the past two weeks, but denies any difficulty breathing. He has no active complaints right now, but states he just wants to be checked out. Patient was seen in this ER 2 days ago, given a Z-pack, which he states he has been taking. No new complaints compared to visit 2 days ago. Past Medical History Reviewed: Historical Data, Nursing Documentation, Vital Signs Vital Signs: Last Vital Signs Temp 98.7 F 05/11/18 05:44 Pulse 104 H 05/11/18 05:44 Resp 18 05/11/18 05:44 BP 138/91 H 05/11/18 05:44 Pulse Ox 100 05/11/18 05:44 - Medical History PMH: CAD, Fractures (left ankle fx twice, r great toe fx, r 5th toe fx), HIV, HTN, Seizures Denies: Depression, Chronic Kidney Disease - Family History Family History: States: Unknown Family Hx - Home Medications Home Medications: Ambulatory Orders Medication Instructions Recorded Furosemide [Lasix] 20 mg PO DAILY #14 tab 04/08/18 Naproxen Sodium [Aleve] 220 mg PO Q6 PRN 04/09/18 Furosemide [Lasix] 20 mg PO DAILY #7 tablet 04/19/18 Azithromycin [Z-Keaton] 250 mg PO ASDIR #6 tab 05/09/18 - Allergies Allergies/Adverse Reactions: Allergies Allergy/AdvReac Type Severity Reaction Status Date / Time No Known Allergies Allergy Verified 04/14/18 06:46 Review of Systems ROS Statement: Except As Marked, All Systems Reviewed And Found Negative Constitutional: Negative for: Fever, Chills Cardiovascular: Negative for: Chest Pain Respiratory: Positive for: Cough. Negative for: Shortness of Breath Gastrointestinal: Negative for: Vomiting, Diarrhea Physical Exam - Reviewed Nursing Documentation Reviewed: Yes Vital Signs Reviewed: Yes - Physical Exam Appears: Positive for: Non-toxic, No Acute Distress Head Exam: Positive for: ATRAUMATIC, NORMAL INSPECTION, NORMOCEPHALIC Skin: Positive for: Normal Color Eye Exam: Positive for: Normal appearance Neck: Positive for: Normal, Supple Cardiovascular/Chest: Positive for: Regular Rate, Rhythm Respiratory: Positive for: Normal Breath Sounds. Negative for: Rales, Rhonchi, Wheezing Gastrointestinal/Abdominal: Positive for: Normal Exam, Soft Back: Positive for: Normal Inspection Extremity: Positive for: Normal ROM. Negative for: Pedal Edema Neurologic/Psych: Positive for: Alert, Oriented. Negative for: Motor/Sensory Deficits - ECG O2 Sat by Pulse Oximetry: 100 (RA) Pulse Ox Interpretation: Normal Medical Decision Making Medical Decision Making: Impression: 47yo male with cough, currently taking antibiotics Plan: -- Exam is unremarkable, vital sings stable. Patient has no indication for a workup at this time. Patient informed to complete his ZPack and to follow up with Infectious Disease specialist. Scribe Attestation: Documented by Bri Pinto, acting as a scribe for Joselin Hendrickson MD Provider Scribe Attestation: All medical record entries made by the Scribe were at my direction and personally dictated by me. I have reviewed the chart and agree that the record accurately reflects my personal performance of the history, physical exam, medical decision making, and the department course for this patient. I have also personally directed, reviewed, and agree with the discharge instructions and disposition. Disposition - Clinical Impression Clinical Impression: Cough, HIV positive - Disposition Disposition: Routine/Home Disposition Time: 06:02 Condition: STABLE Additional Instructions: Take medication as prescribed. Follow up with infectious disease specialist and primary medical doctor. Instructions: Acute Bronchitis, Adult (DC), Cough, Adult (DC), HIV/AIDS (DC) Forms: [employer] (Qatari) Print Language: MOSOTHO
[2018-05-11 07:41] VITALS: BP 136/84; PULSE 89; TEMP 98.5
== END 2018-05-11 06:55 | disposition home or self-care (01) ==
LOC: H.ER 04:45
DX: R05 Cough (principal); B20 Human immunodeficiency virus [HIV] disease

== ENCOUNTER 2018-05-17 03:10 | Emergency (ER) | payer MEDICAID, OTHER ==
[2018-05-17 03:10] VITALS: BMI 25.0
[2018-05-17 03:21] VITALS: O2SAT 97
--- NOTE | 2018-05-17 05:25 | ED PDOC ---
HPI: Trauma/Fall - HPI Time Seen by Provider: 05/17/18 03:39 Chief Complaint (Nursing): Trauma Chief Complaint (Provider): Trauma History Per: Patient History/Exam Limitations: no limitations Onset/Duration Of Symptoms: Days (x2) Location Of Injury: Anterior: Back Additional Complaint(s): 47 y/o homeless male with history of hypertension and CHF presents to ER for evaluation of back pain and cough onset 2 days ago. Patient reports back pain started after a fall. He states cough is productive of green phlegm. Patient denies vomiting, diarrhea, fever and taking any medicine for his symptoms. Patient is requesting a refill for Lasix and is known for multiple visits to the ER. PMD: non provided Past Medical History Reviewed: Historical Data, Nursing Documentation, Vital Signs Vital Signs: Last Vital Signs Temp 97.4 F L 05/17/18 03:18 Pulse 105 H 05/17/18 04:13 Resp 18 05/17/18 04:13 BP 166/100 H 05/17/18 04:13 Pulse Ox 97 05/17/18 03:18 - Medical History PMH: Bronchitis, CAD, CHF, Fractures (left ankle fx twice, r great toe fx, r 5th toe fx), HIV, HTN, Pneumonia, Seizures Denies: Depression, Chronic Kidney Disease - Surgical History Surgical History: No Surg Hx - Family History Family History: States: Unknown Family Hx - Living Arrangements Living Arrangements: Other (Homeless) - Social History Current smoker - smoking cessation education provided: No Alcohol: Social Drugs: Cannabis (Marijuana), Cocaine - Home Medications Home Medications: Ambulatory Orders Medication Instructions Recorded Furosemide [Lasix] 20 mg PO DAILY #14 tab 04/08/18 Naproxen Sodium [Aleve] 220 mg PO Q6 PRN 04/09/18 Furosemide [Lasix] 20 mg PO DAILY #7 tablet 04/19/18 Azithromycin [Z-Keaton] 250 mg PO ASDIR #6 tab 05/09/18 Benzonatate [Tessalon Perle] 100 mg PO TID PRN #15 capsule 05/17/18 Furosemide [Lasix] 40 mg PO QAM #7 tab 05/17/18 Oseltamivir Cap [Tamiflu] 75 mg PO BID #10 cap 05/17/18 - Allergies Allergies/Adverse Reactions: Allergies Allergy/AdvReac Type Severity Reaction Status Date / Time No Known Allergies Allergy Verified 04/14/18 06:46 Review of Systems ROS Statement: Except As Marked, All Systems Reviewed And Found Negative Constitutional: Negative for: Fever Respiratory: Positive for: Cough Gastrointestinal: Negative for: Vomiting, Diarrhea Musculoskeletal: Positive for: Back Pain Physical Exam - Reviewed Nursing Documentation Reviewed: Yes Vital Signs Reviewed: Yes - Physical Exam Appears: Positive for: Non-toxic, No Acute Distress Head Exam: Positive for: ATRAUMATIC, NORMOCEPHALIC Skin: Positive for: Normal Color, Warm, Dry Eye Exam: Positive for: Normal appearance, EOMI, PERRL ENT: Positive for: Normal ENT Inspection Neck: Positive for: Normal, Painless ROM, Supple Cardiovascular/Chest: Positive for: Regular Rate, Rhythm. Negative for: Murmur Respiratory: Positive for: Normal Breath Sounds. Negative for: Wheezing Gastrointestinal/Abdominal: Positive for: Normal Exam, Soft. Negative for: Tenderness Back: Positive for: Normal Inspection. Negative for: L CVA Tenderness, R CVA Tenderness Extremity: Positive for: Normal ROM, Swelling (2+ edema to lower extremity bilaterally) Neurologic/Psych: Positive for: Alert, Oriented (x3) - ECG O2 Sat by Pulse Oximetry: 97 (RA) Pulse Ox Interpretation: Normal Medical Decision Making Medical Decision Makin 47 y/o male presents with cough --Labs --EKG --CXR 0624 CXR shows no active disease. Flu is positive. Patient is stable for discharge with Rx of Tessalon, Lasix and Tamiflu. Scribe Attestation: Documented by Lyric Luna, acting as a scribe for Rajesh Trinidad MD. Provider Scribe Attestation: All medical record entries made by the Scribe were at my direction and personally dictated by me. I have reviewed the chart and agree that the record accurately reflects my personal performance of the history, physical exam, medical decision making, and the department course for this patient. I have also personally directed, reviewed, and agree with the discharge instructions and disposition. Disposition - Clinical Impression Clinical Impression: Influenza - Patient ED Disposition Is Patient to be Admitted: No - Disposition Disposition: Routine/Home Disposition Time: 06:24 Condition: STABLE Prescriptions: Benzonatate [Tessalon Perle] 100 mg PO TID PRN #15 capsule PRN Reason: Cough Furosemide [Lasix] 40 mg PO QAM #7 tab Oseltamivir Cap [Tamiflu] 75 mg PO BID #10 cap Instructions: Flu, Adult (DC) Forms: [employer] (Vietnamese)
[2018-05-17 07:23] VITALS: BP 137/83; PULSE 86; RESP 20; TEMP 97.8
--- NOTE | 2018-05-17 07:53 | RAD ---
Date of service: 05/17/2018 HISTORY: cough COMPARISON: 05/09/2018 TECHNIQUE: Chest PA and lateral FINDINGS: LUNGS: No active pulmonary disease. PLEURA: No significant pleural effusion identified. No pneumothorax apparent. CARDIOVASCULAR: No aortic atherosclerotic calcification present. Cardiomegaly. No pulmonary vascular congestion. OSSEOUS STRUCTURES: No significant abnormalities. VISUALIZED UPPER ABDOMEN: Normal. OTHER FINDINGS: None. IMPRESSION: Cardiomegaly.
== END 2018-05-17 07:22 | disposition home or self-care (01) ==
LOC: H.ER 03:10
DX: J11.1 Influenza due to unidentified influenza virus with other respiratory manifestations (principal); I11.0 Hypertensive heart disease with heart failure
CPT/HCPCS: 71046; 87040; 87804; 96374; 99284; J1885

== ENCOUNTER 2018-05-28 00:15 | Emergency (ER) | payer MEDICAID ==
[2018-05-28 00:15] VITALS: BMI 25.0
[2018-05-28 00:28] VITALS: BP 106/70; PULSE 89; RESP 17; TEMP 96.4; O2SAT 97
[2018-05-28] MEDS ORDERED: Naproxen 500 MG TAB PO ONE ×2 (00:58→01:16)
--- NOTE | 2018-05-28 01:03 | ED PDOC ---
HPI: Back Time Seen by Provider: 05/28/18 00:50 Chief Complaint (Nursing): Weakness/Neurological Deficit Chief Complaint (Provider): back pain History Per: Patient History/Exam Limitations: no limitations Onset/Duration Of Symptoms: Days Current Symptoms Are (Timing): Still Present Exacerbating Factor(s): Turning, Movement Additional Complaint(s): 47 y/o male non domiciled male brought in by EMS for evaluation of low back pain x 10 days. Patient states he fell backwards on grass and then was admitted to [facility] for 10 days for walking pneumonia; states while there they did imaging on his spine and said everything was ok. Denies fever, nausea/vomiting, numbness/weakness of extremities, bowel/bladder incontinence. Patient requesting place to "thaw out" and food Past Medical History Reviewed: Historical Data, Nursing Documentation, Vital Signs Vital Signs: Last Vital Signs Temp 96.4 F L 05/28/18 00:23 Pulse 89 05/28/18 00:23 Resp 17 05/28/18 00:23 BP 106/70 05/28/18 00:23 Pulse Ox 97 05/28/18 00:23 - Medical History PMH: Bronchitis, CAD, CHF, Fractures (left ankle fx twice, r great toe fx, r 5th toe fx), HIV, HTN, Pneumonia, Seizures Denies: Depression, Chronic Kidney Disease - Family History Family History: States: Unknown Family Hx - Home Medications Home Medications: Ambulatory Orders Medication Instructions Recorded Furosemide [Lasix] 20 mg PO DAILY #14 tab 04/08/18 Naproxen Sodium [Aleve] 220 mg PO Q6 PRN 04/09/18 Furosemide [Lasix] 20 mg PO DAILY #7 tablet 04/19/18 Azithromycin [Z-Keaton] 250 mg PO ASDIR #6 tab 05/09/18 Benzonatate [Tessalon Perle] 100 mg PO TID PRN #15 capsule 05/17/18 Furosemide [Lasix] 40 mg PO QAM #7 tab 05/17/18 Oseltamivir Cap [Tamiflu] 75 mg PO BID #10 cap 05/17/18 Atropine/Diphenoxylate [Lonox 1 tab PO QID PRN #6 tab 05/28/18 0.025 MG-2.5 MG] - Allergies Allergies/Adverse Reactions: Allergies Allergy/AdvReac Type Severity Reaction Status Date / Time No Known Allergies Allergy Verified 05/28/18 00:27 Review of Systems ROS Statement: Except As Marked, All Systems Reviewed And Found Negative Musculoskeletal: Positive for: Back Pain Physical Exam - Reviewed Nursing Documentation Reviewed: Yes Vital Signs Reviewed: Yes - Physical Exam Appears: Positive for: Well, Non-toxic, No Acute Distress (sleeping) Head Exam: Positive for: ATRAUMATIC, NORMAL INSPECTION, NORMOCEPHALIC Skin: Positive for: Normal Color Eye Exam: Positive for: Normal appearance ENT: Positive for: Normal ENT Inspection Cardiovascular/Chest: Positive for: Regular Rate, Rhythm Respiratory: Positive for: Normal Breath Sounds Gastrointestinal/Abdominal: Positive for: Normal Exam Back: Positive for: Muscle Spasm (left lspine paravertebral tenderness) Extremity: Positive for: Normal ROM Neurologic/Psych: Positive for: Alert, Oriented (x3) - ECG O2 Sat by Pulse Oximetry: 97 - Progress ED Course And Treament: -Naproxen PO On re-eval, patient states he is feeling better after resting and food given Patient requires no further intervention in the ED and is stable for discharge at this time Return precautions given Disposition - Clinical Impression Clinical Impression: Back pain - Patient ED Disposition Is Patient to be Admitted: No Counseled Patient/Family Regarding: Diagnosis, Need For Followup - Disposition Disposition: Routine/Home Disposition Time: 05:00 Condition: IMPROVED Instructions: Low Back Pain in Adults
== END 2018-05-28 07:23 | disposition home or self-care (01) ==
LOC: H.ER 00:15
DX: M54.5 Low back pain (principal)

== ENCOUNTER 2018-05-28 18:03 | Emergency (ER) | payer MEDICAID ==
[2018-05-28 18:03] VITALS: BMI 25.0
[2018-05-28 18:13] VITALS: BP 120/79; PULSE 86; RESP 16; TEMP 97.4; O2SAT 99
--- NOTE | 2018-05-28 19:18 | ED PDOC ---
HPI:Nausea, Vomiting, Diarrhea Time Seen by Provider: 05/28/18 18:41 Chief Complaint (Nursing): GI Problem Chief Complaint (Provider): Diarrhea History Per: Patient History/Exam Limitations: no limitations Current Symptoms Are (Timing): Still Present Associated Symptoms: Diarrhea. denies: Fever, Nausea, Vomiting Additional Complaint(s): 47 year old male presents to the ED after being discharged this morning, [place] Patient reports he presents to the ED to get cleaned up. Denies fever, abdominal pain, nausea, or vomiting. PMD: none provided Past Medical History Reviewed: Historical Data Vital Signs: Last Vital Signs Temp 97.4 F L 05/28/18 18:10 Pulse 86 05/28/18 18:10 Resp 16 05/28/18 18:10 BP 120/79 05/28/18 18:10 Pulse Ox 99 05/28/18 18:10 - Medical History PMH: Bronchitis, CAD, CHF, Fractures (left ankle fx twice, r great toe fx, r 5th toe fx), HIV, HTN, Pneumonia, Seizures Denies: Depression, Chronic Kidney Disease - Surgical History Surgical History: No Surg Hx - Family History Family History: States: Unknown Family Hx - Home Medications Home Medications: Ambulatory Orders Medication Instructions Recorded Furosemide [Lasix] 20 mg PO DAILY #14 tab 04/08/18 Naproxen Sodium [Aleve] 220 mg PO Q6 PRN 04/09/18 Furosemide [Lasix] 20 mg PO DAILY #7 tablet 04/19/18 Azithromycin [Z-Keaton] 250 mg PO ASDIR #6 tab 05/09/18 Benzonatate [Tessalon Perle] 100 mg PO TID PRN #15 capsule 05/17/18 Furosemide [Lasix] 40 mg PO QAM #7 tab 05/17/18 Oseltamivir Cap [Tamiflu] 75 mg PO BID #10 cap 05/17/18 - Allergies Allergies/Adverse Reactions: Allergies Allergy/AdvReac Type Severity Reaction Status Date / Time No Known Allergies Allergy Verified 05/28/18 00:27 Review of Systems ROS Statement: Except As Marked, All Systems Reviewed And Found Negative Constitutional: Negative for: Fever Gastrointestinal: Positive for: Diarrhea. Negative for: Nausea, Vomiting, Abdominal Pain Physical Exam - Reviewed Nursing Documentation Reviewed: Yes Vital Signs Reviewed: Yes - Physical Exam Appears: Positive for: Non-toxic, No Acute Distress Head Exam: Positive for: ATRAUMATIC, NORMOCEPHALIC Skin: Positive for: Normal Color, Warm, Dry Eye Exam: Positive for: Normal appearance Neck: Positive for: Normal, Painless ROM Cardiovascular/Chest: Positive for: Regular Rate, Rhythm Respiratory: Positive for: Normal Breath Sounds. Negative for: Wheezing, Respiratory Distress Gastrointestinal/Abdominal: Positive for: Normal Exam, Soft. Negative for: Tenderness Extremity: Positive for: Normal ROM Neurologic/Psych: Positive for: Alert, Oriented. Negative for: Motor/Sensory Deficits - ECG O2 Sat by Pulse Oximetry: 99 (RA) Pulse Ox Interpretation: Normal Medical Decision Making Medical Decision Making: Initial Impression: Diarrhea Initial Plan: --Lomotil 5mL PO Scribe Attestation: Documented by Segundo Skelton acting as a scribe for Abena Lopez MD. Provider Scribe Attestation: All medical record entries made by the Scribe were at my direction and personally dictated by me. I have reviewed the chart and agree that the record accurately reflects my personal performance of the history, physical exam, medical decision making, and the department course for this patient. I have also personally directed, reviewed, and agree with the discharge instructions and disposition. Disposition - Disposition Forms: [employer] (Turkmen)
[2018-05-28] MEDS ORDERED: Atropine-Diphenoxylate 0.025-2.5mg/5 mL Oral Liq (60 ml) PO STA (19:38)
[2018-05-28] MEDS ORDERED: Atropine-Diphenoxylate 0.025-2.5 mg Tab PO STA (19:58)
== END 2018-05-28 20:44 | disposition home or self-care (01) ==
LOC: H.ER 18:03
DX: R19.7 Diarrhea, unspecified (principal)

== ENCOUNTER 2018-06-01 02:07 | Emergency (ER) | payer MEDICAID, BC ==
[2018-06-01 02:07] VITALS: BMI 25.0
[2018-06-01] MEDS ORDERED: Sodium Chloride 0.9% 1,000 ML IV STA (02:30)
--- NOTE | 2018-06-01 02:55 | ED PDOC ---
HPI:Nausea, Vomiting, Diarrhea Time Seen by Provider: 06/01/18 02:26 Chief Complaint (Nursing): Abdominal Pain Chief Complaint (Provider): Nausea/Vomiting History Per: Patient History/Exam Limitations: no limitations Onset/Duration Of Symptoms: Days (x1) Current Symptoms Are (Timing): Still Present Additional Complaint(s): 47 y/o male with a PMHx of HIV and HTN presents to the the ED for evaluation of vomiting and diarrhea, onset one day ago. Patient is undomicile and has exhibited bed seeking behavior. Patient states he wants to be "checked out". Patient reports of having several episodes of vomiting. However, patient had no episodes of vomiting at presents. Otherwise, patient denies fever, abdominal pain, shortness of breath and chest pain. PMD: Clinic Past Medical History Reviewed: Historical Data, Nursing Documentation, Vital Signs Vital Signs: Last Vital Signs Temp 97.4 F L 06/01/18 02:15 Pulse 93 H 06/01/18 02:15 Resp 15 06/01/18 02:15 BP 129/94 H 06/01/18 02:15 Pulse Ox 100 06/01/18 02:15 - Medical History PMH: Bronchitis, CAD, CHF, Diverticulitis, Fractures (left ankle fx twice, r great toe fx, r 5th toe fx), HIV, HTN, Peripheral Edema, Pneumonia, Seizures Denies: Depression, Chronic Kidney Disease - Surgical History Surgical History: No Surg Hx - Family History Family History: States: Unknown Family Hx - Living Arrangements Living Arrangements: Other (homeless) - Home Medications Home Medications: Ambulatory Orders Medication Instructions Recorded Aspirin [Aspirin Chewable] 81 mg PO DAILY #30 chew 05/30/18 Sulfamethoxazole/Trimethoprim 1 tab PO MWF #12 tab 05/30/18 [Bactrim DS 800 mg-160 mg] Dicyclomine [Bentyl] 20 mg PO Q12 PRN #20 tab 06/01/18 Ondansetron ODT [Zofran ODT] 4 mg PO Q6 PRN #8 odt 06/01/18 - Allergies Allergies/Adverse Reactions: Allergies Allergy/AdvReac Type Severity Reaction Status Date / Time No Known Allergies Allergy Verified 06/01/18 02:19 Review of Systems ROS Statement: Except As Marked, All Systems Reviewed And Found Negative Cardiovascular: Negative for: Chest Pain Respiratory: Negative for: Shortness of Breath Gastrointestinal: Positive for: Vomiting. Negative for: Abdominal Pain Physical Exam - Reviewed Nursing Documentation Reviewed: Yes Vital Signs Reviewed: Yes - Physical Exam Appears: Positive for: No Acute Distress Head Exam: Positive for: ATRAUMATIC, NORMOCEPHALIC Skin: Positive for: Normal Color, Warm, Dry Eye Exam: Positive for: Normal appearance, EOMI, PERRL Neck: Positive for: Normal, Painless ROM, Supple Cardiovascular/Chest: Positive for: Regular Rate, Rhythm. Negative for: Murmur Respiratory: Positive for: Normal Breath Sounds. Negative for: Respiratory Distress Gastrointestinal/Abdominal: Positive for: Normal Exam, Soft. Negative for: Tenderness Back: Positive for: Normal Inspection. Negative for: L CVA Tenderness, R CVA Tenderness, Vertebral Tenderness Extremity: Positive for: Normal ROM. Negative for: Pedal Edema, Deformity Neurologic/Psych: Positive for: Alert, Oriented. Negative for: Motor/Sensory Deficits - Laboratory Results Result Diagrams: 06/01/18 02:50 06/01/18 02:50 - ECG O2 Sat by Pulse Oximetry: 100 (RA) Pulse Ox Interpretation: Normal Medical Decision Making Medical Decision Making: Time: 0230 Impression: 47 y/o undomicile male with vomiting and diarrhea Plan: -- CMP -- CBC with Differentials -- Bentyl 20 mg PO -- Sodium Chloride 0.9% IV 1000 mls/hr -- Zofran Inj 4 mg IV -- Heplock Insertion Time: 0620 -- Labs reviewed and demonstrate no clinically significant abnormalities. Patient is stable for discharge home with a diagnosis of gastroenteritis. Scribe Attestation: Documented by Chandana Yeboah, acting as a scribe for Rajesh Trinidad MD. Provider Scribe Attestation: All medical record entries made by the Scribe were at my direction and personally dictated by me. I have reviewed the chart and agree that the record accurately reflects my personal performance of the history, physical exam, medical decision making, and the department course for this patient. I have also personally directed, reviewed, and agree with the discharge instructions and disposition. Disposition - Clinical Impression Clinical Impression: Gastroenteritis - Patient ED Disposition Is Patient to be Admitted: No Counseled Patient/Family Regarding: Studies Performed, Diagnosis - Disposition Disposition: Routine/Home Disposition Time: 06:20 Condition: STABLE Prescriptions: Dicyclomine [Bentyl] 20 mg PO Q12 PRN #20 tab PRN Reason: diarrhea/abdominal pain Ondansetron ODT [Zofran ODT] 4 mg PO Q6 PRN #8 odt PRN Reason: Nausea/Vomiting Instructions: Gastroenteritis (ED) Forms: [facility] (Belarusian)
[2018-06-01 03:29] LABS: BASO % 0.6 % (0.0-2.0); EOS # 0.1 K/uL (0.0-0.7); EOS % 1.2 % (0.0-4.0); LYMPH # 1.8 K/uL (1.0-4.3); LYMPH % 35.8 % (20.0-40.0); MEAN CELL VOLUME 81.1 fl (80.0-94.0); MEAN CORPUSCULAR HGB CONC 30.8 g/dL (33.0-37.0); MEAN PLATELET VOLUME 8.2 fl (7.2-11.7); MONO # 0.5 K/uL (0.0-0.8); NEUT # 2.6 K/uL (1.8-7.0); NEUT % 52.4 % (50.0-75.0); NRBC % 0.1 % (0.0-0.0); RBC 3.98 Mil/uL (4.40-5.90); RED CELL DISTRIBUTION WIDTH 17.9 % (11.5-14.5)
[2018-06-01 03:42] LABS: ALB/GLOB RATIO 0.7 (1.0-2.1); ALT/SGPT 27 U/L (21-72); AST/SGOT 55 U/L (17-59); BLOOD UREA NITROGEN 36 mg/dl (9-20); CALCIUM 9.5 mg/dL (8.4-10.2); GFR NON-AFRICAN AMERICAN > 60
[2018-06-01 05:58] VITALS: BP 122/78; PULSE 78; RESP 18; TEMP 98
[2018-06-01 06:28] VITALS: O2SAT 100
== END 2018-06-01 06:19 | disposition home or self-care (01) ==
LOC: H.ER 02:07
DX: K52.9 Noninfective gastroenteritis and colitis, unspecified (principal); I25.10 Atherosclerotic heart disease of native coronary artery without angina pectoris; I11.0 Hypertensive heart disease with heart failure; I50.9 Heart failure, unspecified; Z79.82 Long term (current) use of aspirin; Z79.899 Other long term (current) drug therapy
CPT/HCPCS: 80053; 85025; 96374; 99283; J2405; J7030

== ENCOUNTER 2018-07-17 21:13 | Emergency (ER) | payer MEDICAID ==
[2018-07-17 22:08] VITALS: BMI 37.3
--- NOTE | 2018-07-18 00:08 | ED PDOC ---
HPI: General Adult Time Seen by Provider: 07/18/18 00:03 Chief Complaint (Nursing): Lower Extremity Problem/Injury Chief Complaint (Provider): Cough/fever History Per: Patient History/Exam Limitations: no limitations Onset/Duration Of Symptoms: Days Current Symptoms Are (Timing): Still Present Severity: Mild Pain Scale Rating Of: 0 Additional Complaint(s): 48 y/o male with h/o HIV (not yet started on medication) presents to ed c/o cough for 5 days. Associated green sputum production, nasal congestion and subjective fever since this am. Patient verbalizes he had fever this am but did not take anything for "fever". Pt reports chronic BLE lower extremity swelling but denies pain to legs at this time. Denies nausea, vomiting, diarrhea, chest pain, sob, palpitations, facial pain, calf pain/swelling Past Medical History Reviewed: Historical Data, Nursing Documentation, Vital Signs Vital Signs: Last Vital Signs Temp 98.1 F 07/17/18 22:27 Pulse 109 H 07/17/18 22:27 Resp 20 07/17/18 22:27 BP 155/87 H 07/17/18 22:27 Pulse Ox 96 07/17/18 22:27 - Medical History PMH: Anemia (blood transfusion s/p trauma at age 18), Bronchitis, CAD, CHF, Diverticulitis, Fractures (left ankle fx twice, r great toe fx, r 5th toe fx), HIV, HTN, Peripheral Edema, Pneumonia, Seizures Denies: Depression, Chronic Kidney Disease - Surgical History Surgical History: Coronary Stent Other surgeries: Hernia repair - Family History Family History: States: Unknown Family Hx - Living Arrangements Living Arrangements: Other (homeless) - Home Medications Home Medications: Ambulatory Orders Medication Instructions Recorded Fluticasone Nasal [Flonase] 1 actuation NS BID #1 bottle 07/18/18 guaiFENesin/Dextromethorphan 1 - 2 tab PO Q12H PRN #20 tab 07/18/18 [guaiFENesin/DM 600-30 mg] - Allergies Allergies/Adverse Reactions: Allergies Allergy/AdvReac Type Severity Reaction Status Date / Time No Known Allergies Allergy Verified 07/17/18 22:27 Review of Systems ROS Statement: Except As Marked, All Systems Reviewed And Found Negative Constitutional: Positive for: Fever ENT: Positive for: Nose Congestion Cardiovascular: Positive for: Edema (bilateral lower legs) Respiratory: Positive for: Cough Physical Exam - Reviewed Nursing Documentation Reviewed: Yes Vital Signs Reviewed: Yes - Physical Exam Appears: Positive for: Well Head Exam: Positive for: NORMAL INSPECTION Skin: Positive for: Normal Color Eye Exam: Positive for: Normal appearance Neck: Positive for: Normal Cardiovascular/Chest: Positive for: Regular Rate, Rhythm Respiratory: Positive for: Normal Breath Sounds Pulses-Radial (L): 2+ Pulses-Radial (R): 2+ Gastrointestinal/Abdominal: Positive for: Normal Exam Back: Positive for: Normal Inspection Extremity: Positive for: Normal ROM, Swelling (2+ pitting edema bilateral lower extremities;chronic. no open wounds noted, no tenderness. color normal for ethnicity, temp warm, no erythema noted. ) Neurological/Psych: Positive for: Awake, Alert - ECG O2 Sat by Pulse Oximetry: 96 - Radiology X-Ray: Interpreted by Me, Viewed By Me X-Ray Interpretation: No Acute Disease - Progress ED Course And Treament: LABS: RAPID STREP IFLUENZA RAD: CXR Pt educated on findings. Discharged with RX: mucinex DM and flonase. Pt educated on symptomatic tx and instructed to follow-up with PMD within 2-3 days. Return to ED precautions given. PT verbalized understanding. Re-evaluation Time: 02:00 Condition: Re-examined Disposition - Clinical Impression Clinical Impression: Cough, URI (upper respiratory infection) - Disposition Referrals: [facility] [Outside] Disposition: Routine/Home Disposition Time: 02:00 Condition: STABLE Prescriptions: Fluticasone Nasal [Flonase] 1 actuation NS BID #1 bottle guaiFENesin/Dextromethorphan [guaiFENesin/DM 600-30 mg] 1 - 2 tab PO Q12H PRN #20 tab PRN Reason: cough and congestion Instructions: Viral Upper Respiratory Infection, Adult (DC), Cough, Adult (DC) Print Language: UGANDAN - POA Present On Arrival: None
[2018-07-18 03:44] VITALS: BP 131/88; PULSE 90; RESP 16; TEMP 97.8; O2SAT 98
--- NOTE | 2018-07-18 08:12 | RAD ---
Date of service: 07/17/2018 HISTORY: cough COMPARISON: Chest radiographs 05/17/2018. TECHNIQUE: Chest PA and lateral FINDINGS: LUNGS: No active pulmonary disease. PLEURA: No significant pleural effusion identified. No pneumothorax apparent. CARDIOVASCULAR: No aortic atherosclerotic calcification present. Stable mild cardiomegaly no pulmonary vascular congestion. OSSEOUS STRUCTURES: No significant abnormalities. VISUALIZED UPPER ABDOMEN: Normal. OTHER FINDINGS: None. IMPRESSION: No interval acute cardiopulmonary disease appreciated. Stable mild cardiomegaly reiterated.
== END 2018-07-18 04:00 | disposition home or self-care (01) ==
LOC: H.ER 21:13
DX: J06.9 Acute upper respiratory infection, unspecified (principal); R05 Cough; I11.0 Hypertensive heart disease with heart failure; I25.10 Atherosclerotic heart disease of native coronary artery without angina pectoris; Z95.5 Presence of coronary angioplasty implant and graft; B20 Human immunodeficiency virus [HIV] disease